=== PATIENT | female | born 1965 | race Caucasian/White ===

== ENCOUNTER 2020-03-24 08:12 | Outpatient (CLI) | payer OTHER, SELFPAY ==
--- NOTE | ~2020-03-24 | US_ITS ---
EXAMINATION: US abdomen complete DATE: 03/24/2020 09:20 INDICATION: Right upper quadrant abdominal pain. TECHNIQUE: Multiple grayscale and Doppler ultrasound images of the abdomen were obtained. COMPARISON: CT abdomen and pelvis 02/05/2018 FINDINGS: The visualized portions of the head, body, and tail of the pancreas are normal. There is di ffuse hepatic steatosis. There is normal flow in main portal vein. The gallbladder is normal in size. No gallstones or gallbladder wall thickening. There was a positive sonographic Krueger sign. The comm on duct is normal and measures 5 mm. The kidneys are normal in size. The spleen is normal in size. Ab dominal aorta is normal in caliber. Inferior vena cava is normal. IMPRESSION: 1. Diffuse hepatic steatosis. 2. Positive sonographic Krueger sign, but no other evidence of acute cholecystitis. Reviewed, dictated and finalized at location A. IMPRESSION: 1. Diffuse hepatic steatosis. 2. Positive sonographic Krueger sign, but no other evidence of acute cholecystit is.
== END 2020-03-24 08:13 | disposition home or self-care (01) ==
PROVIDERS: PCP Internal Medicine; Visit Provider Internal Medicine
DX: R10.11 Right upper quadrant pain (principal); K76.0 Fatty (change of) liver, not elsewhere classified
CPT/HCPCS: 76700

== ENCOUNTER 2020-03-29 01:24 | Outpatient (CLI) | payer OTHER, SELFPAY ==
[2020-03-30 18:47] LABS: SARS-CoV-2 RNA PCR Negative
== END 2020-03-29 01:25 | disposition home or self-care (01) ==
LOC: ANHCOVIDDT 01:25
PROVIDERS: PCP Internal Medicine; Visit Provider Surgery
DX: Z01.812 Encounter for preprocedural laboratory examination (principal); Z11.59 Encounter for screening for other viral diseases
CPT/HCPCS: 87635; C9803; U0003

== ENCOUNTER 2020-03-29 07:24 | Outpatient (CLI) | payer OTHER, SELFPAY ==
[2020-03-29 07:55] LABS: Anion Gap 12.4 mmol/L (7-16); Blood Urea Nitrogen 10 mg/dL (7-17); Calcium 8.7 mg/dL (8.4-10.2); Carbon Dioxide 25 mmol/L (22-30); Chloride 104 mmol/L (98-107); Estimated Glomerular Filt Rate > 60; Glucose 236 mg/dL (65-105); Potassium 4.4 mmol/L (3.4-5.0); Sodium 137 mmol/L (137-145)
--- NOTE | 2020-03-29 08:18 | ECG_ITS ---
Measurements Intervals [place] Rate: 73 P: 53 NC: 168 QRS: 15 QRSD: 88 T: 35 QT: 401 QTc: 445 Interpretive Statements SINUS RHYTHM LOW QRS VOLTAGE IN PRECORDIAL LEADS NONSPECIFIC T-WAVE ABNORMALITY- ANTERIOR LEADS BORDERLINE ECG Electronically Signed On 03-29-2020 8:24:57 CDT by Sonny Zhou D.O.
== END 2020-03-29 07:25 | disposition home or self-care (01) ==
PROVIDERS: PCP Internal Medicine; Referring Provider Anesthesiology; Visit Provider Surgery
DX: K42.9 Umbilical hernia without obstruction or gangrene (principal); E11.65 Type 2 diabetes mellitus with hyperglycemia; I10 Essential (primary) hypertension; Z01.812 Encounter for preprocedural laboratory examination; R94.31 Abnormal electrocardiogram [ECG] [EKG]
CPT/HCPCS: 36415; 80048; 86850; 86900; 86901; 93005

== ENCOUNTER 2020-04-01 01:13 | Day surgery (SDC) | payer OTHER, SELFPAY ==
[2020-03-27 15:18] VITALS: BMI 49.9
[2020-04-01] VITALS (9 sets, daily range): BP systolic 99–133; BP diastolic 40–92; PULSE 62–76; RESP 12–16; TEMP 36.3; O2SAT 93–100
--- NOTE | 2020-04-01 08:12 | WPDANESEPPF ---
Anes - Initial Pre Proc Eval Procedure: Operation Date: 04/01/20 12:30 Proposed Procedures p Robotic Assisted Umbilical Hernia Repair With Mesh - Caity Perez MD Date/Time: 04/01/20 08:12 Surgeon: Caity Perez MD Pre Op Diagnosis: Umbilical Hernia Patient Data Age: 55 Gender: F Height: 1.65 m Weight: 136.08 kg Allergies Allergy/AdvReac Type Severity Reaction Status Date / Time No Known Allergies Allergy Mild Verified 03/27/20 15:19 Home Medications Medication Instructions Recorded Confirmed Type fluticasone propionate 50 2 spray NASAL DAILY PRN #15.8 ml 07/11/19 04/01/20 Rx mcg/actuation nasal spray,suspension aspirin 81 mg tablet,delayed 81 mg PO DAILY 07/24/19 04/01/20 History release loratadine 10 mg tablet 10 mg PO DAILY 07/24/19 04/01/20 History levothyroxine 50 mcg tablet 50 mcg PO DAILY #90 tablet 11/09/19 04/01/20 Rx citalopram 20 mg tablet 20 mg PO DAILY #90 tablet 11/13/19 04/01/20 Rx lisinopril 20 mg tablet 20 mg PO DAILY #90 tablet 02/11/20 04/01/20 Rx simvastatin 20 mg tablet 20 mg PO DAILY #90 tablet 02/11/20 04/01/20 Rx glimepiride 4 mg tablet 4 mg PO BID 90 Days #180 tablet 02/27/20 04/01/20 Rx metformin 500 mg tablet 1,000 mg PO BID 90 Days #360 tablet 02/27/20 04/01/20 Rx albuterol sulfate [ProAir HFA] 2 inhalation INHALATION Q4-6H PRN 03/27/20 03/27/20 History Patient hx anesthesia problems: none Family hx anesthesia problems: none PMFSH Past Medical History Medical History (Updated 03/27/20 @ 10:11 by Malini Peace) Essential hypertension Hypothyroidism, unspecified Kidney stones Type 2 diabetes mellitus with hyperglycemia Social History Social History Smoking packs per day: 1 Smoking cigarettes per day: 20.0 Years smoked: 10 Smoking pack-years: 10.00 Smoking status: Former smoker Second hand tobacco smoke exposure: No Smoking end date: 09/06/99 Additional smoking assessment comments: QUIT 20 YEARS AGO Alcohol intake: current Substance use: never 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 Spiritual care concerns: No Anes - Eval Final PreProcedure Day of Procedure 04/01/20 08:12 Patient weight: morbidly obese Heart: regular rate and rhythm Lungs: clear to auscultation and normal air movement Airway: Mallampati scale class II and other (permanent bridge on top teeth) Neurological: alert and oriented Last oral intake: >/= 8 hours ASA classification: III Emergent: no Anesthetic plan: proceed Anesthesia type and monitoring: general ETT and standard monitoring Informed Consent: The patient's anesthetic plan and its attendant risks and benefits were discussed with the patient/family/POA. Questions were solicited and answers provided to the satisfaction of the patient/family/POA.
[2020-04-01] MEDS: LACTATED RINGERS 1,000 ML 30 ML IV CONT ×2 (11:02→16:55)
[2020-04-01] MEDS: ACETAMINOPHEN 500 MG TABLET 1000 MG PO (11:03)
[2020-04-01] MEDS: KETOROLAC 15 MG/ML VIAL (*BKC) IV PUSH (11:03)
--- NOTE | 2020-04-01 11:03 | WPDHPUPDATE1 ---
History and Physical Update Update Date/Time: 04/01/20 11:03 History and Physical has been reviewed, including an updated exam of the patient. There are NO changes in the patient's condition. Risks, benefits, and alternatives have been discussed and questions answered. Patient agrees to proceed with procedure.
[2020-04-01 11:07] LABS: Glucose Point of Care 196 (65-105)
--- NOTE | 2020-04-01 13:27 | SUR.PREOP ---
Up to bathroom.
[2020-04-01] MEDS: ceFAZolin 3 GM/D5W 100 ML 100 ML IVPB (14:24)
[2020-04-01] MEDS: BUPIVACAINE/EPINEPHRINE 0.5% 10 ML VIAL 30 ML INFILTRATE (14:56)
--- NOTE | 2020-04-01 16:42 | P.OP_ITS ---
Procedure Note - Detailed Date of procedure: 04/01/20 Pre-op diagnosis: Umbilical Hernia periumbilical ventral hernia, diastasis Post-op diagnosis: same Procedure performed: robotic assisted repair of periumbilical ventral hernia and diastasis recti with 15 x 10 cm mesh in underlay position Description of procedure: The patient was taken the operating room placed in the supine position. After adequate induction of general anesthesia, the patient was prepped and draped in normal sterile fashion. A time-out was then done to verify the patient's identity as well as the procedure being performed. I began by making a 5 mm incision in the left upper quadrant. Through this, a Veress needle was placed into the peritoneal cavity and CO2 gas was insufflated. After adequate pneumoperitoneum was achieved, a 5 mm trocar was placed through this incision. I then placed the laparoscope through this trocar site and under direct visualization I placed a 8 mm port in the left mid abdomen as well as an additional 8 mm port in the left lower abdomen. I then moved the camera to the lower port and replaced the 5 mm port with a 12 mm airport. The robot was then docked to the 3 port sites. I then went to the robotic console. I began by identifying the periumbilical hernia. A moderate-sized hernia was noted in the periumbilical region and a area of diastasis was noted inferiorly. Using graspers, I was able to reduce the hernia. The hernia was noted to just contain preperitoneal fat. Once reduced, I closed the defect and diastasis with 0 strata fix suture. I then placed a 15 x 10 cm symbotex mesh into the abdominal cavity. The Vicryl stitch was placed in the middle of the mesh and brought up centering the mesh over the defect. Once this was done, I used 2 0 V lock suture to circumferentially suture the mesh to the abdominal. Once the mesh was completely sutured in, I was happy with our tension-free repair. The mesh was noted to have good overlap of both the defect and area of diastasis. A t this point, the robot was undocked and all ports were removed. I then closed the 12 mm port site with an 0 Vicryl [id number] suture at the fascial level. All port sites were then closed with 4 O Monocryl subcuticular suture. The patient tolerated the procedure well, is extubated in the operating room postoperative, OB transferred to the recovery room in stable condition. Implants: 15 x 10 symbotex mesh Anesthesia: GETA Surgeon: Caity Perez MD Estimated blood loss (mL): 10 Drains: No Packing: No Pathology: none sent Complications: No immediate complications Condition: stable Disposition: PACU Findings: fat containing periumbilical hernia and diastasis
== END 2020-04-01 19:20 | disposition home or self-care (01) ==
PROVIDERS: PCP Internal Medicine; Visit Provider Surgery
PROC: (CPT 49652; principal; 2020-04-01 12:30)
DX: K43.9 Ventral hernia without obstruction or gangrene (principal); M62.08 Separation of muscle (nontraumatic), other site; I10 Essential (primary) hypertension; E11.9 Type 2 diabetes mellitus without complications; E03.9 Hypothyroidism, unspecified; Z79.84 Long term (current) use of oral hypoglycemic drugs; Z79.82 Long term (current) use of aspirin; Z87.891 Personal history of nicotine dependence; E66.01 Morbid (severe) obesity due to excess calories; Z68.43 Body mass index [BMI] 50.0-59.9, adult
CPT/HCPCS: 49652; S2900; 87635; A9270; C1781; C9803; J0330; J0690; J1100; J1170; J1885; J2250; J2405; J2704; J2710; J3010; J7120; U0003

== ENCOUNTER 2020-04-22 06:48 | Outpatient (CLI) | payer OTHER, SELFPAY ==
--- NOTE | ~2020-04-22 | NM_ITS ---
EXAMINATION: NM hepatobiliary w pharm EXAM DATE: 04/22/2020 08:42 INDICATION: Right upper quadrant pain. TECHNIQUE: 4.8 mCi Tc-99m mebrofenin (Choletec) was administered intravenously. Scintigraphic images of the abdomen were obtained for one hour. At the 1 hour time point, 3 mcg sincalide (Kinevac) was a dministered by slow intravenous infusion, and imaging was continued for 30 minutes. Gallbladder eject ion fraction was calculated by the technologist. There is no prior study for comparison. FINDINGS: There is normal clearance of radiotracer from the blood pool. There is homogeneous tracer u ptake by the liver. Activity progresses to the gallbladder and bowel. The gallbladder ejection fract ion (GBEF) is 79 % (most patients with gallbladder dysfunction have GBEF < 35%, but there is overlap with the normal range of 10-90%). IMPRESSION: Gallbladder ejection fraction 79%, within normal range. Reviewed, dictated and finalized at location B.
== END 2020-04-22 06:49 | disposition home or self-care (01) ==
PROVIDERS: PCP Internal Medicine; Visit Provider Internal Medicine
DX: R10.11 Right upper quadrant pain (principal)
CPT/HCPCS: 78227; A9537; J2805

== ENCOUNTER 2020-05-13 13:22 | Emergency (ER) | payer OTHER, SELFPAY ==
[2020-05-13 13:28] VITALS: BP 155/70; PULSE 89; RESP 16; TEMP 37.4; O2SAT 99
--- NOTE | 2020-05-13 13:59 | ED.WOUNDLAC ---
HPI - Wound/Laceration General Chief Complaint: Wound/Laceration Stated Complaint: lt hand index finger laceration Source: patient and RN notes reviewed Limitations: no limitations History of Present Illness HPI narrative: The patient, who is right-handed and immunizations not UTD, presents with wound check of avulsion/small laceration. Patient states wants know if she needs stitches or tetanus, as prior to arrival she cut her nondominant, left distal index finger while using a kitchen knife. This is resulting in a deep avulsion or small, superficial, well approximated distal based flap laceration, along the radial aspect of the finger. Symptoms are mild, better with rest or elevation and compression; she requests a tetanus shot and declines sutures. Related Data Home Medications Medication Instructions Recorded Confirmed aspirin 81 mg tablet,delayed 81 mg PO DAILY 07/24/19 05/13/20 release loratadine 10 mg tablet 10 mg PO DAILY 07/24/19 05/13/20 Allergies Allergy/AdvReac Type Severity Reaction Status Date / Time No Known Allergies Allergy Mild Verified 05/13/20 13:58 Review of Systems ENT: Comments: General/Constitutional: No weight loss,fever Eyes: N0: Redness,discharge Ears/Nose/Throat: No: Epistaxis,ear discharge Respiratory: Denies: Hemoptysis Gastrointestinal: No Vomiting, Bleeding-rectal Skin: No Lumps, eruption Neurologic: No Focal Weakness,Sz Hematologic: Denies: Petechiae/Purpura Psychiatric: No: Suicida ideationl All Other Systems: Reviewed and Negative [facility] Past Medical History Medical History (Updated 05/14/20 @ 00:00 by Jerel rBo) Essential hypertension Hypothyroidism, unspecified Kidney stones Type 2 diabetes mellitus with hyperglycemia Surgical History Surgical History (Updated 04/16/20 @ 14:21 by Kenia Arora) History of ventral hernia repair robotic assisted repair of periumbilical ventral hernia and diastasis recti with [id number] mesh in underlay position 04/01/20 Social History Social History Smoking packs per day: 1 Smoking cigarettes per day: 20.0 Years smoked: 10 Smoking pack-years: 10.00 Smoking status: Former smoker Second hand tobacco smoke exposure: No Smoking end date: 09/06/99 Additional smoking assessment comments: QUIT 20 YEARS AGO Alcohol intake: current Substance use: never 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 There is no relevant family history pertinent to the presenting complaint Exam Narrative: Exam Narrative: General Appearance: Well appearing, Conjunctiva clear Mouth/Throat: Normal appearing, Normal lips Neck: Supple Respiratory: Airway patent, No respiratory distress Skin: Warm, Dry, Normal color, 1.5 cm superficial avulsion/distal based superficial flap laceration, radial-lateral aspect finger MS finger: Normal strength (mostly intact, limited flexion/extension by pain), Tenderness at avulsion, Other (no anterior drawer, no collateral laxity,) Neurological: A&O x3, Normal affect Course Vital Signs Vital signs: Vital Signs Temperature 99.3 F 05/13/20 13:28 Pulse Rate 89 05/13/20 13:28 Respiratory Rate 16 05/13/20 13:28 Blood Pressure 155/70 H 05/13/20 13:28 Pulse Oximetry 99 05/13/20 13:28 Temperature 99.3 F 05/13/20 13:28 Pulse Rate 89 05/13/20 13:28 Respiratory Rate 16 05/13/20 13:28 Blood Pressure 155/70 H 05/13/20 13:28 Pulse Oximetry 99 05/13/20 13:28 Procedures Laceration Laceration 1: Date: 05/13/20 Site: upper extremity Side (If applicable): left Size (cm): 1.5 Description: linear Depth: simple, single layer Local Anesthetic: other anesthetic (topical) Pre-repair: wound explored
[2020-05-13] MEDS: TETANUS,DIPHTHERIA,AC PERTUSSIS ADULT (0.5 ML) BOOSTRIX IM (14:06)
== END 2020-05-13 14:35 | disposition home or self-care (01) ==
PROVIDERS: Emergency Provider Emergency Medicine; PCP Internal Medicine
DX: S61.211A Laceration without foreign body of left index finger without damage to nail, initial encounter (principal); W26.0XXA Contact with knife, initial encounter; Z23 Encounter for immunization; Z87.891 Personal history of nicotine dependence; I10 Essential (primary) hypertension; E03.9 Hypothyroidism, unspecified; E11.9 Type 2 diabetes mellitus without complications
CPT/HCPCS: 12001; 90471; 90715; 99212; G0463

== ENCOUNTER 2020-06-30 08:25 | Inpatient (IN) | payer OTHER, SELFPAY ==
[2020-06-30] VITALS (24 sets, daily range): BP systolic 103–152; BP diastolic 44–88; PULSE 76–117; RESP 16–28; TEMP 36–39.6; O2SAT 92–100; BMI 53.4
--- NOTE | ~2020-06-30 | XR_ITS ---
EXAMINATION: XR retrograde pyelo w/stent RT EXAM DATE: 06/30/2020 12:48 INDICATION: Cystoscopy, retrograde stent placement on the right. TECHNIQUE: Fluoroscopy used during XR retrograde pyelo w/stent RT performed by Dr. Irene Quinn MD. The DAP for this procedure was 1900 radcm2. Cine run(s) available for review. FINDINGS: Right ureter was cannulated, injected. There is mild right-sided hydronephrosis. A double- J ureteral stent was placed. Correlate with procedure note. IMPRESSION: Fluoroscopy used during XR retrograde pyelo w/stent RT. Reviewed, dictated and finalized at location A.
--- NOTE | ~2020-06-30 | XR_ITS ---
EXAMINATION: XR abdomen/kub 1V DATE: 07/01/2020 08:45 INDICATION: Right kidney stone. TECHNIQUE: A supine view of the abdomen on 2 radiographs was obtained. COMPARISON: Abdomen radiographs 07/20/2019, CT abdomen and pelvis 06/30/2020 FINDINGS: There are no dilated loops of bowel. There is a right internal ureteral stent in expected p osition. There is a 15 x 3 mm stone in right kidney lower pole. IMPRESSION: 1. Stone in right kidney lower pole. 2. Right internal ureteral stent in expected position. Reviewed, dictated and finalized at location A.
--- NOTE | ~2020-06-30 | CT_ITS ---
EXAMINATION: CT abdomen pelvis wo con DATE: 06/30/2020 09:09 INDICATION: Flank pain TECHNIQUE: Computed tomography (CT) of the abdomen and pelvis was performed without intravenous contr ast. Automated exposure control and iterative reconstruction technique were employed. The dose-length product was 1573.96 mGy-cm. COMPARISON: 02/05/2018 FINDINGS: Trace right pleural effusion and minimal dependent atelectasis in the right lung. Small pneumatocele in the right lower lobe. Heart size is normal. No pericardial effusion. Small sliding-type hiatal her valery. Diffuse hepatic steatosis. Gallbladder, pancreas and bilateral adrenal glands are normal. Spleni c calcified calcification consistent with old granulomatous disease. Obstructing 14 x 4 x 4 mm stone in the proximal most right ureter with mild right hydronephrosis. Additional 4 mm stone in an inferio r calyx of the right kidney. Left kidney and ureter are normal with no left-sided urolithiasis or hyd ronephrosis. Decompressed bladder is normal. The uterus is either atrophic or more likely surgically absent. 1.4 cm cyst at the right adnexa. Normal short appendix versus appendiceal stump post prior ap pendectomy. No abnormal bowel wall thickening or obstruction. There are few diverticula at the sigmoi d colon without adjacent inflammatory change to suggest diverticulitis. Mild scarring at the umbilicu s with tiny fat-containing supraumbilical hernia. Trace amount of either reactive or physiologic free fluid in the pelvis. No abscess or free intraperitoneal gas. No pathologically enlarged abdominal or pelvic lymphadenopathy. Chronic mild anterior wedging of a few mid to lower thoracic vertebral gabino s. Mild lumbar dextrocurvature with moderate spondylosis. IMPRESSION: 1. Right nephrolithiasis with obstructing 14 x 4 x 4 mm proximal right ureteral stone with mild right hydronephrosis. 2. Small sliding-type hiatal hernia. 3. Diffuse hepatic steatosis. 4. Mild diverticulosis. Reviewed, dictated and finalized at location A.
[2020-06-30 08:53] LABS: Basophils Absolute Auto 0.1 K/mm3 (0.0-0.1); Basophils Percent Auto 0.3 % (0.2-1.2); Eosinophils Percent Auto 0.2 % (0-4.4); Hematocrit 35.7 % (37.0-47.0); Hemoglobin 11.8 g/dL (12.0-15.0); Immature Granulocyte Absolute 0.28 K/mm3 (0.00-0.031); Immature Granulocyte Percent A 1.8 % (0-0.5); Lymphocytes Absolute Auto 0.73 K/mm3 (0.9-3.2); Lymphocytes Percent Auto 4.7 % (18.3-44.2); Mean Corpuscular HGB Conc 33.1 g/dl (32-36); Mean Corpuscular Hemoglobin 27.4 pg (26-34); Monocytes Absolute Auto 0.9 K/mm3 (0.1-0.6); Monocytes Percent Auto 5.5 % (2.6-8.5); Neutrophils Absolute Auto 13.6 K/mm3 (1.3-6.7); Neutrophils Percent Auto 87.5 % (45.5-73.1); Platelet Count Result 225 k/mm3 (150-375); Red Cell Distribution Width 13.7 % (11.5-14.5); White Blood Count 15.6 K/mm3 (4.5-10.0)
--- NOTE | 2020-06-30 09:01 | ED.ABDPAIN ---
HPI - Abdominal Pain General Chief Complaint: Back Pain/Injury Stated Complaint: Flank pain/fever/vomiting Time Seen by Provider: 06/30/20 08:54 Source: patient Mode of arrival: ambulatory Limitations: no limitations History of Present Illness HPI narrative: Patient is a 55-year-old female complaining of right flank pain accompanied by nausea vomiting and fever that started 3 days ago but worse today. Patient states her pain is an 8 out of 10, sharp, nonradiating. Patient denies any chest pain, shortness of breath or abdominal pain. Patient denies any urinary symptoms. Patient does admit to history of kidney stones. Related Data Home Medications Medication Instructions Recorded Confirmed aspirin 81 mg tablet,delayed 81 mg PO DAILY 07/24/19 05/13/20 release loratadine 10 mg tablet 10 mg PO DAILY 07/24/19 05/13/20 Allergies Allergy/AdvReac Type Severity Reaction Status Date / Time No Known Allergies Allergy Mild Verified 06/30/20 08:34 Review of Systems Review of Systems: All systems reviewed & are unremarkable except as noted in HPI and below Constitutional: Constitutional: Denies body ache(s), Denies chills, Denies excessive sweating, Denies fatigue, Denies fever(s), Denies headache(s), Denies lethargy, Denies malaise, Denies weakness and Denies weight loss Eyes: Eyes: Denies blurry vision, Denies change in vision and Denies loss of vision ENT: Denies dizziness, Denies ear discharge, Denies headache(s), Denies lip swelling, Denies epistaxis, Denies nasal congestion, Denies neck pain, Denies throat swelling and Denies tongue swelling Cardiovascular: Cardiovascular: Denies chest pain, Denies chest pain at rest, Denies chest pain with activity, Denies diaphoresis, Denies rapid heart rate, Denies edema, Denies irregular heart rhythm, Denies lightheadedness, Denies palpitations, Denies dyspnea and Denies dyspnea on exertion Respiratory: Respiratory: Denies chest congestion, Denies cough, Denies hemoptysis, Denies dyspnea and Denies dyspnea on exertion Gastrointestinal: Gastrointestinal: Denies abdominal pain, Denies melena, Denies hematochezia, Denies diarrhea, Denies nausea, Denies vomiting and Denies hematemesis Musculoskeletal: Musculoskeletal: Denies abnormal gait, Denies deformity, Denies joint swelling, Denies limited range of motion, Denies neck pain and Denies numbness Neurologic: Denies Abnormal speech present, Denies abnormal gait, Denies confusion, Denies dizziness, Denies headache(s), Denies focal weakness, Denies loss of vision, Denies numbness, Denies Other visual disturbances, Denies Sensory deficit (Neuro) and Denies weakness Psychiatric: Psychiatric: Denies confusion, Denies depression, Denies auditory hallucinations, Denies homicidal ideation and Denies suicidal ideation Endocrine: Endocrine: Denies cold intolerance, Denies excessive sweating, Denies fatigue, Denies heat intolerance and Denies palpitations Hematologic/Lymphatic: Hematologic/Lymphatic: Denies easy bleeding and Denies easy bruising Allergic/Immunologic: Allergic/Immunologic: Denies lip swelling, Denies throat swelling and Denies tongue swelling PMFSH Past Medical History Medical History (Updated 06/30/20 @ 11:39 by Abhinav Howe MD) Essential hypertension Hypothyroidism, unspecified Kidney stones Type 2 diabetes mellitus with hyperglycemia Surgical History Surgical History (Updated 04/16/20 @ 14:21 by Kenia Arora) History of ventral hernia repair robotic assisted repair of periumbilical ventral hernia and diastasis recti with [id number] mesh in underlay position 04/01/20 Family History Family History Sibling Patient's brother is in good health Family history of diabetes mellitus in first degree relative Mother Family history of diabetes mellitus in first degree relative, Onset Age: 76 Diabetes mellitus Father Patient's father is Other Ast
[2020-06-30 09:03] LABS: Anion Gap 12 mmol/L (8-16); Blood Urea Nitrogen 11 mg/dL (7-17); Carbon Dioxide 27 mmol/L (22-30); Chloride 94 mmol/L (98-107); Estimated Glomerular Filt Rate 42; Glucose 281 mg/dL (65-105); Sodium 133 mmol/L (137-145)
[2020-06-30 09:13] LABS: Add Urine Microscopic? YES; Appearance Urine Cloudy (Clear); Bacteria Urine Trace /hpf; Bilirubin Urine Negative (Negative); Blood Urine 2+ (Negative); Color Urine Yellow (Yellow); Glucose Urine UA 1+ mg/dL (Negative); Ketones Urine Trace mg/dL (Negative); Leukocyte Esterase Ur 3+ LEU/UL (Negative); Mucus Urine Rare /lpf; Nitrate Urine Negative (Negative); Protein Urine 3+ mg/dL (Negative); Squamous Epithelial Cell Urine Many /hpf (Few); Urobilinogen Urine Negative mg/dL (<2.0); WBC Urine >75 /hpf
[2020-06-30] MEDS: KETOROLAC 30 MG/ML VIAL (*BKC) IV PUSH (09:30)
[2020-06-30] MEDS: PROMETHAZINE HCL 25 MG/ML AMPUL 12.5 MG IV PUSH (09:32)
[2020-06-30] MEDS: SODIUM CHLORIDE 0.9% IV 1,000 ML 999 ML IV CONT (09:32)
--- NOTE | 2020-06-30 12:06 | WPDANESEPPF ---
Anes - Initial Pre Proc Eval Procedure: Operation Date: 06/30/20 12:00 Proposed Procedures p Cysto, RPG, Stone Ext, Stent Placement(Right) - Irene Quinn MD Date/Time: 06/30/20 12:06 Surgeon: Irene Quinn MD Pre Op Diagnosis: Flank pain/fever/vomiting Patient Data Age: 55 Gender: F Height: Weight: 145.5 kg Last Vital Signs Temp 37.4 C 06/30/20 08:30 Pulse 99 06/30/20 11:58 Resp 20 06/30/20 11:58 BP 110/60 06/30/20 11:58 Pulse Ox 99 06/30/20 11:58 Allergies Allergy/AdvReac Type Severity Reaction Status Date / Time No Known Allergies Allergy Mild Verified 06/30/20 08:34 Home Medications Medication Instructions Recorded Confirmed Type aspirin 81 mg tablet,delayed 81 mg PO DAILY 07/24/19 05/13/20 History release loratadine 10 mg tablet 10 mg PO DAILY 07/24/19 05/13/20 History lisinopril 20 mg tablet 20 mg PO DAILY #90 tablet 02/11/20 05/13/20 Rx simvastatin 20 mg tablet 20 mg PO DAILY #90 tablet 02/11/20 05/13/20 Rx metformin 500 mg tablet 1,000 mg PO BID 90 Days #360 tablet 02/27/20 05/13/20 Rx citalopram 20 mg tablet 20 mg PO DAILY #90 tablet 05/16/20 Rx glimepiride 4 mg tablet 4 mg PO BID 90 Days #180 tablet 05/16/20 Rx levothyroxine 50 mcg tablet 50 mcg PO DAILY #90 tablet 05/19/20 Rx Laboratory Tests 06/30/20 06/30/20 06/30/20 08:37 08:37 08:40 WBC 15.6 K/mm3 H K/mm3 (4.5-10.0) RBC 4.30 M/mm3 M/mm3 (4.2-5.4) Hgb 11.8 g/dL L g/dL (12.0-15.0) Hct 35.7 % L % (37.0-47.0) MCV 83.0 fl fl (80-100) MCH 27.4 pg pg (26-34) MCHC 33.1 g/dl g/dl (32-36) RDW 13.7 % % (11.5-14.5) Plt Count 225 k/mm3 k/mm3 (150-375) MPV 9.0 fl fl (7.4-10.4) Immature Gran % (Auto) 1.8 % H % (0-0.5) Neut % (Auto) 87.5 % H % (45.5-73.1) Lymph % (Auto) 4.7 % L % (18.3-44.2) [place] % (Auto) 5.5 % % (2.6-8.5) Eos % (Auto) 0.2 % % (0-4.4) Baso % (Auto) 0.3 % % (0.2-1.2) Lymph # (Auto) 0.73 K/mm3 L K/mm3 (0.9-3.2) [place] # (Auto) 0.9 K/mm3 H K/mm3 (0.1-0.6) Eos # (Auto) 0.0 K/mm3 K/mm3 (0-0.3) Baso # (Auto) 0.1 K/mm3 K/mm3 (0.0-0.1) Abs Immat Gran (auto) 0.28 K/mm3 H K/mm3 (0.00-0.031) Absolute Neuts (auto) 13.6 K/mm3 H K/mm3 (1.3-6.7) Absolute Nucleated RBC 0.0 K/mm3 K/mm3 (0.0-0.012) Nucleated RBC % 0.0 % % (0.0-0.2) Sodium 133 mmol/L L mmol/L (137-145) Potassium 4.0 mmol/L mmol/L (3.4-5.0) Chloride 94 mmol/L L mmol/L (98-107) Carbon Dioxide 27 mmol/L mmol/L (22-30) Anion Gap 12 mmol/L mmol/L (8-16) BUN 11 mg/dL mg/dL (7-17) Creatinine 1.30 mg/dL H mg/dL (0.7-1.0) Estim Creat Clear Calc Not Reportable Estimated GFR 42 L (59 - ) Glucose 281 mg/dL H mg/dL (65-105) Calcium 9.0 mg/dL mg/dL (8.4-10.2) Urine Color Yellow (Yellow) Urine Appearance Cloudy H (Clear) Urine pH 5.0 (5.0-9.0) Ur Specific [place] 1.020 (1.001-1.035) Urine Protein 3+ mg/dL H mg/dL (Negative) Urine Glucose (UA) 1+ mg/dL H mg/dL (Negative) Urine Ketones Trace mg/dL mg/dL (Negative) Ur Blood (Man) 2+ H (Negative) Urine Nitrate Negative (Negative) Urine Bilirubin Negative (Negative) Urine Urobilinogen Negative mg/dL mg/dL (<2.0) Leukocyte Esterase Rfl 3+ HALLIE/UL H HALLIE/UL (Negative) Urine RBC 6-10 /hpf H /hpf (0-2) Urine WBC >75 /hpf H /hpf Ur Squamous Epith Cells Many /hpf H /hpf (Few) Urine Bacteria Trace /hpf /hpf Urine Mucus Rare /lpf /lpf Patient hx anesthesia problems: none Family hx anesthesia problems: none PMF
--- NOTE | 2020-06-30 12:13 | WPDURCON ---
Assessment and Plan Assessment and plan (1) Acute unilateral obstructive uropathy: Code(s): N13.9 - Obstructive and reflux uropathy, unspecified Status: Acute (2) Hydronephrosis due to obstruction of ureter: Code(s): N13.2 - Hydronephrosis with renal and ureteral calculous obstruction Status: Acute Assessment and Plan: right 14mm proximal ureteral stone with hydronephrosis of the right kidney, associated urinary tract infection - patient to be taken to the OR today for cystoscopy right ureteral stent insertion. Risks benefits alternatives discussed with the patient patient understands and agrees to proceed with procedure today. She understands risk procedure include but limited to infection, bleeding, pain, injury to surrounding structures, inability to place stent, need for additional interventions. She understands stent is a temporary device and she will need definitive stone surgery down the road - patient will be admitted to the hospital and be given IV antibiotics. We will wait final culture results (3) Urinary tract infection: Qualifiers: Hematuria presence: with hematuria Urinary tract infection type: site unspecified Qualified Code(s): N39.0 - Urinary tract infection, site not specified; R31.9 - Hematuria, unspecified Code(s): N39.0 - Urinary tract infection, site not specified Status: Acute Urology Consult Note HPI Date Seen: 06/30/20 Requesting Physician: Irene Quinn MD Primary Care Provider: Vamshi Felix DO Consult Narrative Narrative: Thea Quiroz is a 55 year old female with right flank pain accompanied by nausea vomiting and fever that started 3 days ago but worse today. Patient states her pain is an 8 out of 10, sharp, nonradiating. Patient denies any chest pain, shortness of breath or abdominal pain. Patient denies any urinary symptoms. - Patient does admit to history of kidney, States previously stones have passed on their own or have dissolved with potassium citrate PMFSH Past Medical History Medical History Essential hypertension Hypothyroidism, unspecified Kidney stones Type 2 diabetes mellitus with hyperglycemia Surgical History Surgical History History of ventral hernia repair robotic assisted repair of periumbilical ventral hernia and diastasis recti with [id number] mesh in underlay position 04/01/20 Family History Family History Sibling Patient's brother is in good health Family history of diabetes mellitus in first degree relative Mother Family history of diabetes mellitus in first degree relative, Onset Age: 76 Diabetes mellitus Father Patient's father is Other Asthma Cerebrovascular accident Family history of arthritis Family history of glaucoma Family history of thyroid disease Hypertension Malignant neoplasm of prostate Social History Social History Smoking packs per day: 1 Smoking cigarettes per day: 20.0 Years smoked: 10 Smoking pack-years: 10.00 Smoking status: Former smoker Second hand tobacco smoke exposure: No Smoking end date: 09/06/99 Additional smoking assessment comments: QUIT 20 YEARS AGO Alcohol intake: current Substance use: never 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
--- NOTE | 2020-06-30 12:44 | PM.PROC ---
Procedure Note - Detailed Date of procedure: 06/30/20 Pre-op diagnosis: Flank pain/fever/vomiting Post-op diagnosis: same Procedure performed: cystoscopy, right retrograde pyelogram, right ureteral stent insertion, Taylor catheter insertion Description of procedure: informed consent obtained patient to the operative procedure preoperative IV antibiotics in the emergency department. she was induced with anesthesia she was placed in dorsal lithotomy position. She was prepped and draped. A 22 F cystoscope was inserted through the urethra into the bladder. The bladder was irritated with debris consistent with her known UTI, there were no other mucosal abnormalities. the right ureteral orifice is cannulated retrograde pyelogram showed moderate right hydronephrosis. I was able to manipulate a wire past the stone. Over the wire I advanced a 5 F angiographic catheter, there was return of purulence fluid from the right kidney which was sent for culture. Again a retrograde pyelogram was performed to identify the right collecting system with moderate hydronephrosis. Over a wire a 6 F variable length stent was placed with a curl in the renal pelvis and a curl in the bladder. A Taylor catheter was inserted. Patient taken the recovery room in stable condition Anesthesia: GLMA Surgeon: Irene Quinn MD Estimated blood loss (mL): 0 Drains: No Packing: No Pathology: none sent Complications: No immediate complications Condition: stable Disposition: PACU
[2020-06-30] MEDS: LACTATED RINGERS 1,000 ML 30 ML IV CONT (12:53)
[2020-06-30 13:27] LABS: Glucose Point of Care 250 (65-105)
--- NOTE | 2020-06-30 13:35 | SUR.PHASEI ---
PT AWAKENS EASILY. RESTING QUIETLY. DENIES PAIN OR NAUSEA. COLD CLOTH APPLIED TO FOREHEAD PER REQUEST.
--- NOTE | 2020-06-30 13:56 | SUR.PHASEI ---
CALLED DR JUÁREZ, CLARIFICATION, PT TO GO TO MED/SURG. NOT IMU.
--- NOTE | 2020-06-30 14:06 | SUR.PHASEI ---
PT SLEEPING IN INTERVALS. REPORT WAS FAXED TO FLOOR AT [id number].
--- NOTE | 2020-06-30 14:20 | ADMGEN ---
This patient, Thea Quiroz, was admitted to 2 Medical Room 242-01. Patient/family oriented to hospital policies and general routines including ID bracelet, bed and alarms, visiting hours, pain management, procedures, bathroom and other care routines, personal items, smoking policy, room service/diet, and visiting hours. Information on how to activate the Rapid Response Team has been discussed. Patient/Family are encouraged to report perceived risks to care and to ask questions if they do not understand what they are told or what they should do.
[2020-06-30] MEDS: LACTATED RINGERS 1,000 ML 125 ML IV CONT ×2 (14:46→22:25)
--- NOTE | 2020-06-30 17:11 | PM.IMHP ---
H&P: HPI History of Present Illness Date/Time: 06/30/20 17:11 Chief complaint: Flank pain/fever/vomiting Narrative: Thea Quiroz is a 55 year old female Who has a history of having kidney stones in the past but has never had a renal stent. The patient stated that she started to have some right flank pain that started In the evening after work. She did not go to work on Wednesday. patient has been having some right flank pain with some nausea and vomiting and fever. She stated her fever got up to 103. Today her pain was severe 8/10 and it was sharp and nonradiating. This was in the right flank area. She only took Tylenol at home. She had no chest pain or palpitations. No cough. Patient's vital signs when she came to the emergency room 37.4 100 And 20 on 09/25/19. patient's H&H insulin 0.8 and 35.7. Creatinine 1.3 and is usually normal. Patient was positive for UTI and was started on Rocephin. abdomen pelvis CT was read as right verbalizes with obstructing 14 x 4 x 4 mm proximal right ureteral stone with mild hydronephrosis. Small sliding-type hiatal hernia. Diffuse hepatic steatosis. Mild diverticulosis. Urology took the patient to OR and placed a stent in the right ureter. According to the op report there was no blood loss and no complications. See the operative note. This procedure was performed by Dr. Quinn. patient had a cysto, RPG, stone extraction. Stent placement on the right. The patient was given Toradol, Phenergan, and IV fluids in the emergency room. Patient is awake now and answering questions. However she is feeling nauseated and some mild discomfort. She is having fever and chills. The patient is being admitted to observation to medical floor on 06/30/2020. Review of Systems Review of Systems: All systems reviewed & are unremarkable except as noted in HPI and below Constitutional: Constitutional: Reports as per HPI and Reports no additional constitutional complaints Eyes: Eyes: Reports as per HPI and Reports no additional eye complaints ENT: Reports system reviewed and no additional complaints, except as documented and Reports Normal hearing present Cardiovascular: Cardiovascular: Reports no additional cardiovascular complaints Respiratory: Respiratory: Reports no additional respiratory complaints and Reports no additional respiratory complaints Gastrointestinal: Gastrointestinal: Reports as per HPI and Reports no additional gastrointestinal complaints Musculoskeletal: Musculoskeletal: Reports no additional musculoskeletal complaints Integumentary/Breasts: Skin/Breast: Reports system reviewed and no additional complaints, except as docu and Reports as per HPI Neurologic: Reports system reviewed and no additional complaints, except as documented, Reports as per HPI and Reports Normal hearing present Psychiatric: Psychiatric: Reports no additional psychiatric complaints and Reports as per HPI Endocrine: Endocrine: Reports no additional endocrine complaints Hematologic/Lymphatic: Hematologic/Lymphatic: Reports no additional hematologic/lymphatic complaints Allergic/Immunologic: Allergic/Immunologic: Reports no additional allergic/immunologic complaints [facility] Past Medical History Medical History (Updated 06/30/20 @ 17:21 by Zena Rodriguez NP) Depression with anxiety Diverticulosis Essential hypertension Hypertension Hypothyroidism, unspecified Kidney stones Type 2 diabetes mellitus with hyperglycemia Surgical History Surgical History (Updated 06/30/20 @ 17:21 by Zena Rodriguez NP) History of renal stent 06/30/2020 History of ventral hernia repair robotic assisted repair of periumbilical ventral hernia and diastasis recti with [id number] mesh in underlay position 04/01/20 Family History Family History (Updated 06/30/20 @ 17:22 by Zena Rodriguez NP) Sibling Patient's brother is in good health Family history of diabetes mellitus in first degree relative sister Moth
[2020-06-30 17:19] LABS: Glucose Point of Care 231 (65-105)
[2020-06-30] MEDS: GLIMEPIRIDE 2 MG TABLET 4 MG PO (17:24)
[2020-06-30] MEDS: INSULIN ASPART (*BKC) 100 UNITS/ML SUB-Q (17:30)
[2020-06-30 22:29] LABS: Glucose Point of Care 246 (65-105)
[2020-07-01] VITALS (16 sets, daily range): BP systolic 104–138; BP diastolic 58–78; PULSE 85–102; RESP 15–23; TEMP 36.4–39.3; O2SAT 92–99
[2020-07-01] MEDS: INSULIN ASPART (*BKC) 100 UNITS/ML SUB-Q ×4 (00:30→16:27)
[2020-07-01 00:32] LABS: Glucose Point of Care 262 (65-105)
[2020-07-01 05:53] LABS: Hematocrit 34.6 % (37.0-47.0); Hemoglobin 11.1 g/dL (12.0-15.0); Mean Corpuscular HGB Conc 32.1 g/dl (32-36); Mean Corpuscular Hemoglobin 27.1 pg (26-34); Mean Corpuscular Volume 84.6 fl (80-100); Mean Platelet Volume 9.4 fl (7.4-10.4); Platelet Count Result 175 k/mm3 (150-375); Red Blood Count 4.09 M/mm3 (4.2-5.4); Red Cell Distribution Width 14.1 % (11.5-14.5); White Blood Count 10.7 K/mm3 (4.5-10.0)
[2020-07-01 06:11] LABS: Lactic Acid Reflex 2.1 mmol/L (0.7-2.1)
[2020-07-01] MEDS: LEVOTHYROXINE SODIUM 50 MCG TABLET PO (06:21)
[2020-07-01 06:24] LABS: Hemoglobin A1C 9.2 % (<5.7)
[2020-07-01] MEDS: LACTATED RINGERS 1,000 ML 125 ML IV CONT ×2 (06:24→16:27)
[2020-07-01 06:33] LABS: Glucose Point of Care 205 (65-105)
[2020-07-01 06:59] LABS: Band Neutrophils Percent 8 % (0-6); Lymphocytes Absolute Manual 0.64 K/mm3 (1.1-4.5); Monocytes Absolute Manual 0.74 K/mm3 (0.1-0.90); Monocytes Percent Manual 7 % (3-9); Neutrophils Percent Manual 79 % (46-73); Platelet Estimate Adequate (Adequate); Total Cells Counted 100
[2020-07-01 07:09] LABS: Alanine Aminotransferase 23 U/L (4-35); Albumin Level 3.2 g/dL (3.5-5.1); Alkaline Phosphatase 112 U/L (38-126); Anion Gap 9 mmol/L (8-16); Aspartate Amino Transferase 31 U/L (14-36); Bilirubin,Total 0.6 mg/dL (0.2-1.3); Blood Urea Nitrogen 19 mg/dL (7-17); Calcium 8.2 mg/dL (8.4-10.2); Carbon Dioxide 29 mmol/L (22-30); Chloride 94 mmol/L (98-107); Estimated CRCL calculation 63 ml/min; Estimated Glomerular Filt Rate 42; Glucose 222 mg/dL (65-105); Magnesium 1.7 mg/dL (1.6-2.3); Potassium 3.9 mmol/L (3.4-5.0); Sodium 132 mmol/L (137-145)
--- NOTE | 2020-07-01 07:12 | WPDUROPN2 ---
Progress Note: A&P Assessment and Plan (1) Acute unilateral obstructive uropathy: Code(s): N13.9 - Obstructive and reflux uropathy, unspecified Status: Acute (2) Hydronephrosis due to obstruction of ureter: Code(s): N13.2 - Hydronephrosis with renal and ureteral calculous obstruction Status: Acute (3) Urinary tract infection: Qualifiers: Hematuria presence: with hematuria Urinary tract infection type: site unspecified Qualified Code(s): N39.0 - Urinary tract infection, site not specified; R31.9 - Hematuria, unspecified Code(s): N39.0 - Urinary tract infection, site not specified Status: Acute Assessment and Plan: Obstructive pyelonephritis resolving as expected - anticipate several more days of diminishing/intermittently spiking fevers (explained to pt.). Improved leukocytosis is encouraging. Continue Ceftriaxone peinding culture. Will get KUB to determine stone position after stent placement. Subjective Subjective Date/Time Seen: 07/01/20 07:12 Chilling persists, fever slowly resolving. No abdominal/flank pain, tolerating stent well. Review of Systems Cardiovascular: Cardiovascular: Denies chest pain, Denies lightheadedness, Denies palpitations and Denies dyspnea Respiratory: Respiratory: Denies dyspnea Gastrointestinal: Gastrointestinal: Denies diarrhea, Denies nausea and Denies vomiting Genitourinary: Genitourinary: Denies hematuria and Denies dysuria Endocrine: Endocrine: Denies palpitations Objective Data Vital Signs Vital Signs: Vital Signs - 24 hr 06/30/20 08:30 06/30/20 10:13 06/30/20 11:34 Temperature 99.3 F Pulse Rate 76 100 100 Respiratory Rate 20 20 20 Blood Pressure 152/63 H 121/50 L 118/88 Pulse Oximetry 96 95 97 06/30/20 11:55 06/30/20 11:58 06/30/20 12:53 Temperature 99.7 F H Pulse Rate 99 99 106 H Respiratory Rate 20 20 20 Blood Pressure 110/60 110/60 103/52 L Pulse Oximetry 99 99 100 06/30/20 13:05 06/30/20 13:20 06/30/20 13:35 Temperature Pulse Rate 103 H 102 H 101 H Respiratory Rate 26 H 26 H 26 H Blood Pressure 108/53 L 114/64 118/53 L Pulse Oximetry 100 100 94 06/30/20 13:50 06/30/20 14:05 06/30/20 14:20 Temperature 99.3 F Pulse Rate 101 H 98 100 Respiratory Rate 28 H 28 H 16 Blood Pressure 110/44 L 116/56 L 123/57 L Pulse Oximetry 93 93 94 06/30/20 14:35 06/30/20 15:05 06/30/20 16:05 Temperature 99.0 F 99.6 F 103.0 F H Pulse Rate 102 H 104 H 110 H Respiratory Rate 16 17 17 Blood Pressure 128/52 L 135/61 119/56 L Pulse Oximetry 93 92 93 06/30/20 17:00 06/30/20 17:25 06/30/20 17:55 Temperature 103.0 F H 103 F H 98.8 F Pulse Rate 110 H Respiratory Rate 17 Blood Pressure 119/56 L Pulse Oximetry 93 06/30/20 18:21 06/30/20 20:00 06/30/20 22:30 Temperature 98.8 F 96.8 F L 103.2 F H Pulse Rate 86 Respiratory Rate 20 Blood Pressure 110/53 L Pulse Oximetry 98 06/30/20 22:55 06/30/20 23:30 06/30/20 23:56 Temperature 103.2 F H 103.1 F H 103.1 F H Pulse Rate 117 H Respiratory Rate 24 H Blood Pressure 105/59 L Pulse Oximetry 95 07/01/20 00:00 07/01/20 00:41 07/01/20 01:29 Temperature 100.9 F H 100.5 F H 98.9 F Pulse Rate Respiratory Rate Blood Pressure Pulse Oximetry 07/01/20 04:00 Temperature 97.5 F L Pulse Rate 102 H Respiratory Rate 22 H Blood Pressure 104/67 Pulse Oximetry 92 Intake/Output Intake/Output: Intake & Output 06/28/20 06/29/20 06/30/20 07/01/20 23:59 23:59 23:59 23:59 Intake Total 2915 1400 Output Total 275 650 Balance 2640 750 Meds/Results Medications: Active Medications Generic Name Dose Route Start Last Admin Trade Name Freq PRN Reason Stop Dose Admin Citalopram Hydrobromide 20 mg 07/01/20 09:00 Citalopram Hydrobromide 20 Mg Tablet PO DAILY MARCIE Dextrose 12.5 gm 06/30/20 16:42 Dextrose 50% 25 Gm/50 Ml Syringe IV PUSH PRN PRN Hypoglycemia Rey
[2020-07-01 07:39] LABS: CRP 39.6 mg/dL (<1.0)
--- NOTE | 2020-07-01 08:29 | PC.NURSE ---
Patient to xray per wheelchair. IVF saline locked.
--- NOTE | 2020-07-01 08:49 | PC.NURSE ---
Patient return from Xray.
[2020-07-01 08:50] LABS: Reflex Lactic Acid Yes or No Add Lactic
[2020-07-01] MEDS: CITALOPRAM HYDROBROMIDE 20 MG TABLET PO (08:54)
[2020-07-01] MEDS: LORATADINE 10 MG TABLET PO (08:55)
[2020-07-01] MEDS: GLIMEPIRIDE 2 MG TABLET 4 MG PO (08:55)
[2020-07-01] MEDS: SIMVASTATIN 20 MG TABLET PO (08:55)
[2020-07-01 09:25] LABS: Lactic Acid 2.2 mmol/L (0.7-2.1)
--- NOTE | 2020-07-01 10:24 | WPDANESPN ---
Anes - Prog Note Post-Op Date/Time: 07/01/20 10:24 Cardiovascular status: normal Respiratory status: normal Airway patency: baseline Mental status: baseline Post-Op hydration status: normal Vital Signs: Last Vital Signs Temp 100.1 F H 07/01/20 07:00 Pulse 102 H 07/01/20 04:00 Resp 22 H 07/01/20 04:00 BP 104/67 07/01/20 04:00 Pulse Ox 92 07/01/20 04:00 Pain Score (VAS): 0 I/O: Intake & Output 06/30/20 07/01/20 07/01/20 23:59 07:59 15:59 Intake Total 1365 1500 340 Output Total 175 650 Balance 1190 850 340 Laboratory Tests 07/01/20 04:58 07/01/20 04:58 06/30/20 06/30/20 06/30/20 13:25 17:14 22:26 WBC RBC Hgb Hct MCV MCH MCHC RDW Plt Count MPV Immature Gran % (Auto) Neut % (Auto) Lymph % (Auto) [place] % (Auto) Eos % (Auto) Baso % (Auto) Lymph # (Auto) [place] # (Auto) Eos # (Auto) Baso # (Auto) Abs Immat Gran (auto) Absolute Neuts (auto) Absolute Nucleated RBC Total Counted Neutrophils % (Manual) Band Neutrophils % Lymphocytes % (Manual) Monocytes % (Manual) Nucleated RBC % Abs Neuts (Manual) Abs Lymphs (Manual) Abs Monocytes (Manual) Platelet Estimate Sodium Potassium Chloride Carbon Dioxide Anion Gap BUN Creatinine Estim Creat Clear Calc Estimated GFR Glucose POC Capillary Glucose 250 H 231 H 246 H Hemoglobin A1c Lactic Acid Calcium Magnesium Total Bilirubin AST ALT Alkaline Phosphatase C-Reactive Protein Total Protein Albumin TSH (Reflex) 06/30/20 07/01/20 07/01/20 23:39 04:58 04:58 WBC 10.7 H RBC 4.09 L Hgb 11.1 L Hct 34.6 L MCV 84.6 MCH 27.1 MCHC 32.1 RDW 14.1 Plt Count 175 MPV 9.4 Immature Gran % (Auto) Not Reportable Neut % (Auto) Not Reportable Lymph % (Auto) Not Reportable [place] % (Auto) Not Reportable Eos % (Auto) Not Reportable Baso % (Auto) Not Reportable Lymph # (Auto) Not Reportable [place] # (Auto) Not Reportable Eos # (Auto) Not Reportable Baso # (Auto) Not Reportable Abs Immat Gran (auto) Not Reportable Absolute Neuts (auto) Not Reportable Absolute Nucleated RBC Not Reportable Total Counted 100 Neutrophils % (Manual) 79 H Band Neutrophils % 8 H Lymphocytes % (Manual) 6.0 L Monocytes % (Manual) 7 Nucleated RBC % Not Reportable Abs Neuts (Manual) 9.30 H Abs Lymphs (Manual) 0.64 L Abs Monocytes (Manual) 0.74 Platelet Estimate Adequate Sodium 132 L Potassium 3.9 Chloride 94 L Carbon Dioxide 29 Anion Gap 9 BUN 19 H Creatinine 1.30 H Estim Creat Clear Calc 63 Estimated GFR 42 L Glucose 222 H POC Capillary Glucose 262 H Hemoglobin A1c Lactic Acid Calcium 8.2 L Magnesium 1.7 Total Bilirubin 0.6 AST 31 ALT 23 Alkaline Phosphatase 112 C-Reactive Protein 39.6 H Total Protein 6.0 L Albumin 3.2 L TSH (Reflex) 07/01/20 07/01/20 07/01/20 04:58 04:58 04:58 WBC RBC Hgb Hct MCV MCH MCHC RDW Plt Count MPV Immature Gran % (Auto) Neut % (Auto) Lymph % (Auto) [place] % (Auto) Eos % (Auto) Baso % (Auto) Lymph # (Auto) [place] # (Auto) Eos # (Auto) Baso # (Auto) Abs Immat Gran (auto) Absolute Neuts (auto) Absolute Nucleated RBC Total Counted Neutrophils % (Manual) Band Neutrophils % Lymphocytes % (Manual) Monocytes % (Manual) Nucleated RBC % Abs Neuts (Manual) Abs Lymphs (Manual) Abs Monocytes (Manual) Platelet Estimate Sodium Potassium Chloride Carbon Dioxide Anion Gap BUN Creatinine Estim Creat Clear Calc Estimated GFR Glucose POC Capillary Glucose Hemoglobin A1c 9.2 H Lactic Acid 2.1 Calcium Magnesium Total Bilirubin AST ALT
--- NOTE | 2020-07-01 11:28 | PM.IMPN ---
Progress Note: A&P Assessment and Plan (1) Sepsis: Code(s): A41.9 - Sepsis, unspecified organism Status: Acute Assessment and Plan: With leukocytosis, fever, tachycardia. The suspected source is obstructive pyelonephritis. Lactic acid was minimally elevated at 2.2 on reflex and will be repeated. She is hemodynamically stable without hypotension. Await repeat lactic acid. Blood and urine cultures were obtained and are pending. Continue IV fluids and IV antibiotics. Continue to monitor vitals, intake & output. (2) Acute unilateral obstructive uropathy: Code(s): N13.9 - Obstructive and reflux uropathy, unspecified Status: Acute Assessment and Plan: CT abd/pelvis demonstrated right 14mm proximal ureteral stone with hydronephrosis of the right kidney and associated UTI. She underwent cystoscopy with right retrograde pyelogram and right ureteral stent placement by Dr. Quinn 06/30. There was purulence returned during the cystoscopy which was sent for culture. She is on IV ceftriaxone. Taylor is still in place. Appreciate urology input. Management per urology. (3) Urinary tract infection: Qualifiers: Hematuria presence: with hematuria Urinary tract infection type: site unspecified Qualified Code(s): N39.0 - Urinary tract infection, site not specified; R31.9 - Hematuria, unspecified Code(s): N39.0 - Urinary tract infection, site not specified Status: Acute Assessment and Plan: Urinalysis was suspicious for UTI. She is febrile with Tmax 103.2F yesterday. Blood and urine cultures were ordered and are pending. Urology is on board and input is appreciated. Continue empiric ceftriaxone and adjust antibiotics as indicated according to sensitivities. Continue IV fluids. Continue antipyretics and antiemetics as needed. (4) Hydronephrosis due to obstruction of ureter: Code(s): N13.2 - Hydronephrosis with renal and ureteral calculous obstruction Status: Acute Assessment and Plan: As above. (5) Type 2 diabetes mellitus with hyperglycemia: Qualifiers: Diabetes mellitus senior living insulin use: without predatory animal exterminator use Qualified Code(s): E11.65 - Type 2 diabetes mellitus with hyperglycemia Code(s): E11.65 - Type 2 diabetes mellitus with hyperglycemia Status: Chronic Assessment and Plan: Hemoglobin A1c is elevated at 9.2%. She was recently referred to endocrinology and the appointment was scheduled for today. Plan to hold oral hypoglycemics while inpatient and add lantus 10 units HS as blood sugars are elevated above target. Continue ACHS glucose monitoring, sliding scale insulin, and hypoglycemia protocol. She will need to follow-up with endocrinology outpatient as well. (6) Acute renal failure: Code(s): N17.9 - Acute kidney failure, unspecified Status: Acute Assessment and Plan: Possibly secondary to acute infection, dehydration due to poor PO intake and vomiting, hydronephrosis due to obstructive stone. Cr is 1.3 and BUN 19 today. Her creatinine is 1.3 today. Baseline appears to be 0.5. Continue IV fluids. Renally dose medications and avoid nephrotoxins. (7) Hypothyroidism, unspecified: Qualifiers: Hypothyroidism type: unspecified Qualified Code(s): E03.9 - Hypothyroidism, unspecified Code(s): E03.9 - Hypothyroidism, unspecified Status: Chronic Assessment and Plan: TSH id 1.23 Continue levothyroxine. (8) Hypertension: Code(s): I10 - Essential (primary) hypertension Status: Chronic Assessment and Plan: Blood pressures have been on the soft side. Most recent blood pressure was 138/69. Lisinopril is held due to BLAIR. Resume when clinically appropriate. (9) Depression with anxiety: Code(s): F41.8 - Other specified anxiety disorders Status: Acute Assessment and Plan: Mood is stable. Continue citalopram.
[2020-07-01 11:32] LABS: Glucose Point of Care 272 (65-105)
[2020-07-01] MEDS: ONDANSETRON INJ 4 MG/2 ML VIAL IV PUSH ×2 (13:12→20:36)
[2020-07-01 14:18] LABS: Lactic Acid Reflex 1.6 mmol/L (0.7-2.1)
[2020-07-01 16:26] LABS: Glucose Point of Care 237 (65-105)
[2020-07-01] MEDS: INSULIN GLARGINE (*BKC) 100 UNITS/ML 10 UNITS SUB-Q (20:47)
[2020-07-01 21:11] LABS: Glucose Point of Care 186 (65-105)
[2020-07-01 22:36] LABS: Glucose Point of Care 185 (65-105)
[2020-07-02] VITALS (12 sets, daily range): BP systolic 113–130; BP diastolic 61–73; PULSE 57–102; RESP 16–22; TEMP 36.4–39.1; O2SAT 95–99
[2020-07-02] MEDS: LACTATED RINGERS 1,000 ML 125 ML IV CONT ×3 (00:06→19:47)
[2020-07-02 00:10] LABS: Glucose Point of Care 173 (65-105)
[2020-07-02] MEDS: LORazepam (*CRX) 0.5 MG TABLET PO ×2 (03:32→23:57)
[2020-07-02] MEDS: LEVOTHYROXINE SODIUM 50 MCG TABLET PO (05:27)
[2020-07-02] MEDS: INSULIN ASPART (*BKC) 100 UNITS/ML SUB-Q ×2 (05:32→18:24)
[2020-07-02 05:39] LABS: Glucose Point of Care 210 (65-105)
[2020-07-02 05:54] LABS: Basophils Percent Auto 0.5 % (0.2-1.2); Eosinophils Absolute Auto 0.1 K/mm3 (0-0.3); Eosinophils Percent Auto 0.6 % (0-4.4); Hematocrit 32.5 % (37.0-47.0); Hemoglobin 10.2 g/dL (12.0-15.0); Immature Granulocyte Absolute 0.12 K/mm3 (0.00-0.031); Immature Granulocyte Percent A 1.4 % (0-0.5); Lymphocytes Absolute Auto 0.86 K/mm3 (0.9-3.2); Lymphocytes Percent Auto 10.3 % (18.3-44.2); Mean Corpuscular HGB Conc 31.4 g/dl (32-36); Mean Corpuscular Hemoglobin 27.3 pg (26-34); Mean Corpuscular Volume 86.9 fl (80-100); Mean Platelet Volume 9.7 fl (7.4-10.4); Monocytes Absolute Auto 0.9 K/mm3 (0.1-0.6); Monocytes Percent Auto 10.8 % (2.6-8.5); Neutrophils Absolute Auto 6.4 K/mm3 (1.3-6.7); Neutrophils Percent Auto 76.4 % (45.5-73.1); Platelet Count Result 173 k/mm3 (150-375); Red Blood Count 3.74 M/mm3 (4.2-5.4); White Blood Count 8.4 K/mm3 (4.5-10.0)
[2020-07-02 06:15] LABS: Alanine Aminotransferase 26 U/L (4-35); Alkaline Phosphatase 127 U/L (38-126); Anion Gap 9 mmol/L (8-16); Aspartate Amino Transferase 42 U/L (14-36); Bilirubin,Total 0.6 mg/dL (0.2-1.3); Blood Urea Nitrogen 15 mg/dL (7-17); Calcium 7.7 mg/dL (8.4-10.2); Carbon Dioxide 28 mmol/L (22-30); Chloride 98 mmol/L (98-107); Estimated CRCL calculation 100 ml/min; Estimated Glomerular Filt Rate > 60; Glucose 207 mg/dL (65-105); Magnesium 1.8 mg/dL (1.6-2.3); Potassium 3.7 mmol/L (3.4-5.0); Sodium 135 mmol/L (137-145)
[2020-07-02 07:11] LABS: CRP 38.8 mg/dL (<1.0)
--- NOTE | 2020-07-02 07:13 | WPDUROPN2 ---
Progress Note: A&P Assessment and Plan (1) Acute unilateral obstructive uropathy: Code(s): N13.9 - Obstructive and reflux uropathy, unspecified Status: Acute (2) Hydronephrosis due to obstruction of ureter: Code(s): N13.2 - Hydronephrosis with renal and ureteral calculous obstruction Status: Acute (3) Urinary tract infection: Qualifiers: Hematuria presence: with hematuria Urinary tract infection type: site unspecified Qualified Code(s): N39.0 - Urinary tract infection, site not specified; R31.9 - Hematuria, unspecified Code(s): N39.0 - Urinary tract infection, site not specified Status: Acute Assessment and Plan: Obstructive pyelonephritis resolving as expected - anticipate several more days of diminishing/intermittently spiking fevers (explained to pt.). Improved leukocytosis is encouraging. Continue Ceftriaxone peinding culture. Will get KUB to determine stone position after stent placement. 07/02/2020 Persistent fever/improving leukocytosis - await final blood and urine cultures. KUB: stent in good position / lightly calcified stone in right lower pole. Subjective Subjective Date/Time Seen: 07/02/20 07:13 Persistent fever with improving leukocytosis - not unusual for pyelo. Review of Systems Cardiovascular: Cardiovascular: Denies chest pain, Denies lightheadedness, Denies palpitations and Denies dyspnea Respiratory: Respiratory: Denies dyspnea Gastrointestinal: Gastrointestinal: Denies diarrhea, Denies nausea and Denies vomiting Genitourinary: Genitourinary: Denies hematuria and Denies dysuria Endocrine: Endocrine: Denies palpitations Exam Const: General: no acute distress Resp: Effort & Inspection: normal respiratory effort GI: Inspection: non-distended GI Palp: No abdominal tenderness and No Guarding due to palpation present (GI) Auscultation: normal bowel sounds Objective Data Vital Signs Vital Signs: Vital Signs - 24 hr 07/01/20 10:00 07/01/20 13:08 07/01/20 13:10 Temperature 99.2 F 100.6 F H 100.6 F H Pulse Rate 87 96 Respiratory Rate 15 20 Blood Pressure 105/58 L 138/69 Pulse Oximetry 97 98 07/01/20 13:40 07/01/20 14:00 07/01/20 18:00 Temperature 100.1 F H 100.1 F H 98.7 F Pulse Rate 95 85 Respiratory Rate 23 H 17 Blood Pressure 124/62 124/71 Pulse Oximetry 97 99 07/01/20 20:36 07/01/20 21:06 07/01/20 21:41 Temperature 102.7 F H 100.0 F H 102.7 F H Pulse Rate 98 Respiratory Rate 20 Blood Pressure 127/78 Pulse Oximetry 97 07/01/20 22:32 07/02/20 02:00 07/02/20 05:25 Temperature 100 F H 99.1 F 102.4 F H Pulse Rate 87 Respiratory Rate 16 Blood Pressure 118/71 Pulse Oximetry 96 07/02/20 05:38 07/02/20 05:55 07/02/20 06:54 Temperature 102.4 F H 99.0 F 99.0 F Pulse Rate 102 H Respiratory Rate 16 Blood Pressure 127/73 Pulse Oximetry 95 Intake/Output Intake/Output: Intake & Output 06/29/20 06/30/20 07/01/20 07/02/20 23:59 23:59 23:59 23:59 Intake Total 2915 3810 2100 Output Total 275 2325 3600 Balance 2640 1485 -1500 Meds/Results Medications: Active Medications Generic Name Dose Route Start Last Admin Trade Name Freq PRN Reason Stop Dose Admin Citalopram Hydrobromide 20 mg 07/01/20 09:00 07/01/20 08:54 Citalopram Hydrobromide 20 Mg Tablet PO 20 mg DAILY MARCIE Administration Dextrose 12.5 gm 06/30/20 16:42 Dextrose 50% 25 Gm/50 Ml Syringe IV PUSH PRN PRN Hypoglycemia Protocol Diphenhydramine HCl 25 mg 06/30/20 16:42 Diphenhydramine Hcl Inj 50 Mg/Ml Vial IV PUSH Q4H PRN Itching Glucagon 1 mg 06/30/20 16:42 Glucagon For Inj 1 Mg Vial IM PRN PRN Hypoglycemia Protocol Glucose 15 gm 06/30/20 16:42 Glucose Oral Gel 15 Gm Of Glucse In 37.5 Gm Tube PO PRN PRN Hypoglycemia Protocol Hydralazine HCl 10 mg 06/30/20 17:35 Hydralazine Hcl 20 Mg/Ml Vial IV PU
--- NOTE | 2020-07-02 07:39 | PM.IMPN ---
Progress Note: A&P Assessment and Plan (1) Sepsis: Code(s): A41.9 - Sepsis, unspecified organism Status: Acute Assessment and Plan: With leukocytosis improving, WBC 15 to 8.4 now. Fever resolved and then returned late this afternoon. Heart rate 50-80s now, tachycardia resolved, Mag level 1.8. source is obstructive pyelonephritis. Lactic acid was elevated at 2.2 then improved to 1.6. hemodynamically stable without hypotension, BP 127/73. Blood cultures showed no growth. Urine cultures show Proteus sensitive to Rocephin. Continue IV fluids and IV antibiotics. Continue to monitor vitals, intake & output. (2) Acute unilateral obstructive uropathy: Code(s): N13.9 - Obstructive and reflux uropathy, unspecified Status: Acute Assessment and Plan: CT abd/pelvis demonstrated right 14mm proximal ureteral stone with hydronephrosis of the right kidney and associated UTI. underwent cystoscopy with right retrograde pyelogram and right ureteral stent placement by Dr. Quinn 06/30. purulence returned during the cystoscopy which was sent for culture. on IV ceftriaxone. Last imaging showed: 1. Stone in right kidney lower pole.2. Right internal ureteral stent in expected position. Patient may have to undergo shockwave lithotripsy due to persistent right Lower Pole kidney stone. Will likely discontinue Taylor tomorrow morning and plan for discharge. Taylor is still in place. Will need to discontinue prior to discharge. Appreciate urology input and management. (3) Urinary tract infection: Qualifiers: Hematuria presence: with hematuria Urinary tract infection type: site unspecified Qualified Code(s): N39.0 - Urinary tract infection, site not specified; R31.9 - Hematuria, unspecified Code(s): N39.0 - Urinary tract infection, site not specified Status: Acute Assessment and Plan: Urinalysis was suspicious for UTI. febrile with Tmax 103.2F Blood and urine cultures were ordered and are pending. Urology is on board and input is appreciated. Continue IV ceftriaxone for Proteus according to sensitivities. Continue IV fluids. Continue antipyretics and antiemetics as needed. (4) Hydronephrosis due to obstruction of ureter: Code(s): N13.2 - Hydronephrosis with renal and ureteral calculous obstruction Status: Acute Assessment and Plan: As above. See obstructive and reflux uropathy unilateral. (5) Type 2 diabetes mellitus with hyperglycemia: Qualifiers: Diabetes mellitus chcf insulin use: without buttermaker use Qualified Code(s): E11.65 - Type 2 diabetes mellitus with hyperglycemia Code(s): E11.65 - Type 2 diabetes mellitus with hyperglycemia Status: Chronic Assessment and Plan: Hemoglobin A1c is elevated at 9.2%. She was recently referred to endocrinology and has an outpatient appointment restart oral hypoglycemics when patient diet advances. Continue ACHS glucose monitoring, sliding scale insulin, and hypoglycemia protocol. need to follow-up with endocrinology outpatient (6) Acute renal failure: Code(s): N17.9 - Acute kidney failure, unspecified Status: Acute Assessment and Plan: Possibly secondary to acute infection and/or dehydration due to poor PO intake and vomiting and/or hydronephrosis due to obstructive stone. Cr was elevated 1.3 and BUN 19; but creatinine improved to 0.8. Baseline creatinine appears to be 0.5. Continue IV fluids. Renally dose medications and avoid nephrotoxins. (7) Hypothyroidism, unspecified: Qualifiers: Hypothyroidism type: unspecified Qualified Code(s): E03.9 - Hypothyroidism, unspecified Code(s): E03.9 - Hypothyroidism, unspecified Status: Chronic Assessment and Plan: TSH is 1.23 Continue levothyroxine. (8) Hypertension: Code(s): I10 - Essential (primary) hypertension Status: Chronic Assessment
[2020-07-02] MEDS: LORATADINE 10 MG TABLET PO (08:07)
[2020-07-02] MEDS: SIMVASTATIN 20 MG TABLET PO (08:07)
[2020-07-02] MEDS: CITALOPRAM HYDROBROMIDE 20 MG TABLET PO (08:07)
[2020-07-02 11:42] LABS: Glucose Point of Care 172 (65-105)
[2020-07-02] MEDS: ONDANSETRON INJ 4 MG/2 ML VIAL IV PUSH (14:45)
[2020-07-02 18:15] LABS: Glucose Point of Care 242 (65-105)
[2020-07-02] MEDS: INSULIN GLARGINE (*BKC) 100 UNITS/ML 10 UNITS SUB-Q (20:27)
[2020-07-02 20:38] LABS: Glucose Point of Care 192 (65-105)
[2020-07-03] VITALS (11 sets, daily range): BP systolic 112–132; BP diastolic 51–65; PULSE 72–102; RESP 15–20; TEMP 36.6–37.9; O2SAT 96–99
[2020-07-03 03:53] LABS: IFOB Positive Control Positive; Immunochemical Fecal Occult Bl Negative (N)
[2020-07-03] MEDS: LACTATED RINGERS 1,000 ML 125 ML IV CONT ×2 (03:55→13:42)
[2020-07-03] MEDS: LEVOTHYROXINE SODIUM 50 MCG TABLET PO (06:36)
[2020-07-03 07:50] LABS: Glucose Point of Care 168 (65-105)
[2020-07-03 08:10] LABS: Basophils Absolute Auto 0.1 K/mm3 (0.0-0.1); Basophils Percent Auto 0.5 % (0.2-1.2); Eosinophils Absolute Auto 0.1 K/mm3 (0-0.3); Eosinophils Percent Auto 1.5 % (0-4.4); Hematocrit 30.4 % (37.0-47.0); Hemoglobin 9.4 g/dL (12.0-15.0); Immature Granulocyte Absolute 0.35 K/mm3 (0.00-0.031); Immature Granulocyte Percent A 3.8 % (0-0.5); Lymphocytes Absolute Auto 1.39 K/mm3 (0.9-3.2); Mean Corpuscular HGB Conc 30.9 g/dl (32-36); Mean Corpuscular Hemoglobin 26.6 pg (26-34); Mean Corpuscular Volume 86.1 fl (80-100); Mean Platelet Volume 9.5 fl (7.4-10.4); Monocytes Percent Auto 10.8 % (2.6-8.5); Neutrophils Absolute Auto 6.4 K/mm3 (1.3-6.7); Neutrophils Percent Auto 68.4 % (45.5-73.1); Platelet Count Result 188 k/mm3 (150-375); Red Blood Count 3.53 M/mm3 (4.2-5.4); Red Cell Distribution Width 14.2 % (11.5-14.5); White Blood Count 9.3 K/mm3 (4.5-10.0)
[2020-07-03 08:15] LABS: Alanine Aminotransferase 22 U/L (4-35); Alkaline Phosphatase 134 U/L (38-126); Anion Gap 9 mmol/L (8-16); Aspartate Amino Transferase 29 U/L (14-36); Bilirubin,Total 0.4 mg/dL (0.2-1.3); Blood Urea Nitrogen 11 mg/dL (7-17); Calcium 8.1 mg/dL (8.4-10.2); Carbon Dioxide 32 mmol/L (22-30); Chloride 101 mmol/L (98-107); Estimated CRCL calculation 113 ml/min; Estimated Glomerular Filt Rate > 60; Glucose 165 mg/dL (65-105); Potassium 3.7 mmol/L (3.4-5.0); Sodium 142 mmol/L (137-145)
[2020-07-03 08:31] LABS: CRP 26.1 mg/dL (<1.0)
[2020-07-03] MEDS: LORATADINE 10 MG TABLET PO (08:52)
[2020-07-03] MEDS: CITALOPRAM HYDROBROMIDE 20 MG TABLET PO (08:52)
[2020-07-03] MEDS: SIMVASTATIN 20 MG TABLET PO (08:52)
[2020-07-03 11:46] LABS: Glucose Point of Care 212 (65-105)
[2020-07-03] MEDS: INSULIN ASPART (*BKC) 100 UNITS/ML SUB-Q (11:54)
--- NOTE | 2020-07-03 13:04 | WPDUROPN2 ---
Progress Note: A&P Assessment and Plan (1) Bacterial infection due to Proteus mirabilis: Code(s): A49.8 - Other bacterial infections of unspecified site Status: Acute Assessment and Plan: - fever and leukocytosis improving - KUB: stent in good position / lightly calcified stone in right lower pole. -okay to remove Taylor as patient has been afebrile -okay to discharge home on antibiotics when stable per primary team, the patient to follow-up in the office to discuss definitive stone management. She will likely proceed with outpatient ureteroscopy. (2) Sepsis: Code(s): A41.9 - Sepsis, unspecified organism Status: Acute (3) Kidney stones: Code(s): N20.0 - Calculus of kidney Status: Chronic (4) Acute renal failure: Code(s): N17.9 - Acute kidney failure, unspecified Status: Acute Subjective Subjective Date/Time Seen: 07/03/20 13:04 Feeling better today Exam HENMT: Head: normal to inspection Resp: Effort & Inspection: normal respiratory effort Urinary Catheter: Urinary Catheter: patent and draining and urine clear Objective Data Vital Signs Vital Signs: Vital Signs - 24 hr 07/02/20 14:00 07/02/20 14:44 07/02/20 15:14 Temperature 38.1 C H 38.1 C H 37.2 C Pulse Rate 57 L Respiratory Rate 22 H Blood Pressure 130/61 Pulse Oximetry 97 07/02/20 17:47 07/02/20 22:00 07/02/20 23:58 Temperature 36.9 C 36.4 C 37.9 C H Pulse Rate 82 81 Respiratory Rate 20 20 Blood Pressure 128/73 113/66 Pulse Oximetry 96 99 07/03/20 00:18 07/03/20 00:28 07/03/20 01:05 Temperature 37.9 C H 37.2 C 37.2 C Pulse Rate 102 H Respiratory Rate 20 Blood Pressure 123/65 Pulse Oximetry 97 07/03/20 02:00 07/03/20 06:00 07/03/20 08:52 Temperature 36.7 C 36.6 C Pulse Rate 90 82 Respiratory Rate 20 20 18 Blood Pressure 116/59 L 114/58 L Pulse Oximetry 96 98 97 07/03/20 09:50 Temperature 37.7 C H Pulse Rate 80 Respiratory Rate 18 Blood Pressure 127/62 Pulse Oximetry 96 Intake/Output Intake/Output: Intake & Output 06/30/20 07/01/20 07/02/20 07/03/20 23:59 23:59 23:59 23:59 Intake Total 2910 3810 6640 2370 Output Total 795 1677 8647 3678 Balance 2643 8219 -928 -854 Meds/Results Medications: Active Medications Generic Name Dose Route Start Last Admin Trade Name Freq PRN Reason Stop Dose Admin Citalopram Hydrobromide 20 mg 07/01/20 09:00 07/03/20 08:52 Citalopram Hydrobromide 20 Mg Tablet PO 20 mg DAILY MARCIE Administration Dextrose 12.5 gm 06/30/20 16:42 Dextrose 50% 25 Gm/50 Ml Syringe IV PUSH PRN PRN Hypoglycemia Protocol Diphenhydramine HCl 25 mg 06/30/20 16:42 Diphenhydramine Hcl Inj 50 Mg/Ml Vial IV PUSH Q4H PRN Itching Glucagon 1 mg 06/30/20 16:42 Glucagon For Inj 1 Mg Vial IM PRN PRN Hypoglycemia Protocol Glucose 15 gm 06/30/20 16:42 Glucose Oral Gel 15 Gm Of Glucse In 37.5 Gm Tube PO PRN PRN Hypoglycemia Protocol Hydralazine HCl 10 mg 06/30/20 17:35 Hydralazine Hcl 20 Mg/Ml Vial IV PUSH Q8H PRN Blood Pressure - High Lactated Ringer's 1,000 mls @ 125 mls/hr 06/30/20 11:40 07/03/20 11:49 Lr - Lactated Ringers Iv IV CONT 125 mls/hr .Q8H MARCIE Infusion Ceftriaxone Sodium 2 gm in 100 mls @ 200 mls/hr 07/01/20 09:00 07/03/20 09:20 Rocephin 2 Gm/D5w 100 Ml IVPB Infused Q24H MARCIE Infusion Dextrose 1,000 mls @ 100 mls/hr 06/30/20 16:42 Dextrose 5% 1,000 Ml IVPB PRN PRN Hypoglycemia Protocol Insulin Aspart 2 - 5 units 07/03/20 08:00 07/03/20 11:54 Insulin Aspart (*Bkc) 100 Units/Ml SUB-Q 2 units TIDWM MARCIE Administration Protocol Insulin Glargine 10 units 07/01/20 21:00 07/02/20 20:27 Insulin Glargine (*Bkc) 100 Units/Ml SUB-Q 10 units HS MARCIE Administration Levothyroxine Sodium 50 mcg 07/01/20 06:30 07/03/20 06:36 Levothyroxine Sodium 50 Mcg Tablet
--- NOTE | 2020-07-03 14:36 | PM.IMPN ---
Progress Note: A&P Assessment and Plan (1) Sepsis: Code(s): A41.9 - Sepsis, unspecified organism Status: Acute Assessment and Plan: With leukocytosis improving, WBC 15 to 8.4 and 9.3 now. Fever resolved and then returned at [place] Heart rate 50-80s now, tachycardia resolved, Mag level 1.8. source was obstructive pyelonephritis. Lactic acid was elevated at 2.2 then improved to 1.6. hemodynamically stable without hypotension, BP 116/59 Blood cultures showed no growth. Urine cultures show Proteus sensitive to Rocephin and CIPRO. D/C IV fluids D/C krueger, planning on discharge tomorrow. (2) Acute unilateral obstructive uropathy: Code(s): N13.9 - Obstructive and reflux uropathy, unspecified Status: Acute Assessment and Plan: CT abd/pelvis demonstrated right 14mm proximal ureteral stone with hydronephrosis of the right kidney and associated UTI. underwent cystoscopy with right retrograde pyelogram and right ureteral stent placement by Dr. Quinn 06/30. purulence returned during the cystoscopy which was sent for culture. on IV ceftriaxone. Last imaging showed: 1. Stone in right kidney lower pole.2. Right internal ureteral stent in expected position. D/C Krueger is still in place. Appreciate urology input and management. (3) Urinary tract infection: Qualifiers: Hematuria presence: with hematuria Urinary tract infection type: site unspecified Qualified Code(s): N39.0 - Urinary tract infection, site not specified; R31.9 - Hematuria, unspecified Code(s): N39.0 - Urinary tract infection, site not specified Status: Acute Assessment and Plan: Proteus UTI Urology is on board and input is appreciated. Continue IV ceftriaxone for Proteus tolerating oral fluids/hydration Continue antipyretics and antiemetics as needed. (4) Hydronephrosis due to obstruction of ureter: Code(s): N13.2 - Hydronephrosis with renal and ureteral calculous obstruction Status: Acute Assessment and Plan: As above. See obstructive and reflux uropathy unilateral. 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 She was recently referred to endocrinology and has an outpatient appointment restart oral hypoglycemics when patient diet advances. Continue ACHS glucose monitoring, sliding scale insulin, and hypoglycemia protocol. need to follow-up with endocrinology outpatient (6) Acute renal failure: Code(s): N17.9 - Acute kidney failure, unspecified Status: Acute Assessment and Plan: Possibly secondary to acute infection and/or dehydration due to poor PO intake and vomiting and/or hydronephrosis due to obstructive stone. Cr was elevated 1.3 and BUN 19; but creatinine improved to 0.8 and 0.7. Baseline creatinine appears to be 0.5. Continue oral hydration. (7) Hypothyroidism, unspecified: Qualifiers: Hypothyroidism type: unspecified Qualified Code(s): E03.9 - Hypothyroidism, unspecified Code(s): E03.9 - Hypothyroidism, unspecified Status: Chronic Assessment and Plan: TSH is 1.23 Continue levothyroxine. (8) Hypertension: Code(s): I10 - Essential (primary) hypertension Status: Chronic Assessment and Plan: Blood pressures have been stable, 127/73 with HR 80-90s. Lisinopril was held due to BLAIR at admission. Creatinine improved from 1.3 to 0.8 to 0.7 SBPs are already well controlled 110s-120s (9) Depression with anxiety: Code(s): F41.8 - Other specified anxiety disorders Status: Acute Assessment and Plan: Mood is stable. Continue citalopram. Patient reported
--- NOTE | 2020-07-03 15:24 | PC.NURSE ---
On 07/03/20, the student, Avtar Meyer, provided care and completed [facility] documentation on this patient. I have reviewed the student's documentation and agree with the findings.
[2020-07-03 16:47] LABS: Glucose Point of Care 162 (65-105)
[2020-07-03] MEDS: SACCHAROMYCES BOULARDII 250 MG CAPSULE PO (16:55)
[2020-07-03] MEDS: INSULIN GLARGINE (*BKC) 100 UNITS/ML 10 UNITS SUB-Q (20:32)
[2020-07-03 20:38] LABS: Glucose Point of Care 170 (65-105)
[2020-07-04 02:00] VITALS: BP 135/66; PULSE 85; RESP 20; TEMP 36.6; O2SAT 97
[2020-07-04 05:49] VITALS: BP 120/60; PULSE 79; RESP 20; TEMP 37; O2SAT 98
[2020-07-04 06:15] LABS: Alanine Aminotransferase 21 U/L (4-35); Albumin Level 2.9 g/dL (3.5-5.1); Alkaline Phosphatase 129 U/L (38-126); Anion Gap 9 mmol/L (8-16); Aspartate Amino Transferase 30 U/L (14-36); Bilirubin,Total 0.3 mg/dL (0.2-1.3); Blood Urea Nitrogen 9 mg/dL (7-17); Calcium 7.8 mg/dL (8.4-10.2); Carbon Dioxide 30 mmol/L (22-30); Chloride 101 mmol/L (98-107); Estimated CRCL calculation 113 ml/min; Estimated Glomerular Filt Rate > 60; Glucose 165 mg/dL (65-105); Magnesium 1.4 mg/dL (1.6-2.3); Potassium 3.1 mmol/L (3.4-5.0); Sodium 140 mmol/L (137-145)
[2020-07-04 07:57] LABS: Glucose Point of Care 140 (65-105)
[2020-07-04 08:17] VITALS: RESP 20; O2SAT 100
[2020-07-04] MEDS: CITALOPRAM HYDROBROMIDE 20 MG TABLET PO (08:17)
[2020-07-04] MEDS: SACCHAROMYCES BOULARDII 250 MG CAPSULE PO ×2 (08:17→17:37)
[2020-07-04] MEDS: LORATADINE 10 MG TABLET PO (08:17)
[2020-07-04] MEDS: SIMVASTATIN 20 MG TABLET PO (08:17)
[2020-07-04 10:00] VITALS: BP 124/63; PULSE 75; RESP 20; TEMP 36.3; O2SAT 98
[2020-07-04] MEDS: LEVOTHYROXINE SODIUM 50 MCG TABLET PO (10:39)
[2020-07-04 11:33] LABS: Glucose Point of Care 180 (65-105)
[2020-07-04 14:00] VITALS: BP 121/57; PULSE 81; RESP 16; TEMP 36.6; O2SAT 98
--- NOTE | 2020-07-04 15:12 | PM.DS ---
DS: Admitting Diagnosis Admitting Diagnosis Admitting Diagnosis: Obstructive uropathy, UTI DS: Discharge Diagnosis Discharge Diagnosis (1) Sepsis: Code(s): A41.9 - Sepsis, unspecified organism Status: Acute Assessment and Plan: With leukocytosis improving, WBC 15 to 8.4 and 9.3 now. Fever resolved and then returned at [place] Heart rate 50-80s now, tachycardia resolved, Mag level 1.8. source was obstructive pyelonephritis. Lactic acid was elevated at 2.2 then improved to 1.6. hemodynamically stable Blood cultures showed no growth. Urine cultures show Proteus sensitive to Rocephin and CIPRO(has cross reaction with her antidepressant), so I have discharged her on Cefdinir. tolerating oral hydration well and eating with no nausea vomiting, voiding and having bowel movements discharge today (2) Acute unilateral obstructive uropathy: Code(s): N13.9 - Obstructive and reflux uropathy, unspecified Status: Acute Assessment and Plan: CT abd/pelvis demonstrated right 14mm proximal ureteral stone with hydronephrosis of the right kidney and associated UTI. underwent cystoscopy with right retrograde pyelogram and right ureteral stent placement by Dr. Quinn 06/30. purulence returned during the cystoscopy which was sent for culture. on IV ceftriaxone. Last imaging showed: 1. Stone in right kidney lower pole.2. Right internal ureteral stent in expected position. Urine cultures show Proteus sensitive to Rocephin and CIPRO(has cross reaction with her antidepressant), so I have discharged her on Cefdinir. tolerating oral hydration well and eating with no nausea vomiting, voiding and having bowel movements discharge today Appreciate urology input and management. (3) Urinary tract infection: Qualifiers: Hematuria presence: with hematuria Urinary tract infection type: site unspecified Qualified Code(s): N39.0 - Urinary tract infection, site not specified; R31.9 - Hematuria, unspecified Code(s): N39.0 - Urinary tract infection, site not specified Status: Acute Assessment and Plan: Proteus UTI Urology is on board and input is appreciated. Continue IV ceftriaxone for Proteus tolerating oral fluids/hydration Continue antipyretics and antiemetics as needed. Urine cultures show Proteus sensitive to Rocephin and CIPRO(has cross reaction with her antidepressant), so I have discharged her on Cefdinir. tolerating oral hydration well and eating with no nausea vomiting, voiding and having bowel movements discharge today (4) Hydronephrosis due to obstruction of ureter: Code(s): N13.2 - Hydronephrosis with renal and ureteral calculous obstruction Status: Acute Assessment and Plan: As above. See obstructive and reflux uropathy unilateral. resolved (5) Type 2 diabetes mellitus with hyperglycemia: Qualifiers: Diabetes mellitus fci insulin use: without keno terminal operator use Qualified Code(s): E11.65 - Type 2 diabetes mellitus with hyperglycemia Code(s): E11.65 - Type 2 diabetes mellitus with hyperglycemia Status: Chronic Assessment and Plan: Hemoglobin A1c is elevated at 9.2%. She was recently referred to endocrinology and has an outpatient appointment restart oral hypoglycemics when patient diet advances. Continue ACHS glucose monitoring, sliding scale insulin, and hypoglycemia protocol. need to follow-up with endocrinology outpatient chronic and controlled (6) Acute renal failure: Code(s): N17.9 - Acute kidney failure, unspecified Status: Acute Assessment and Plan: Possibly secondary to acute infection and/or dehydration due to poor PO intake and vomiting and/or hydronephrosis due to obstructive stone. Cr was elevated 1.3 and BUN 19; but creatinine improved to 0.8 and 0.7. Baseline creatinine appears to be 0.5. Continue oral hydration. resolved (7) Hypothyroidism, unspecified: Qualifiers:
[2020-07-04 16:41] LABS: Glucose Point of Care 198 (65-105)
--- NOTE | 2020-07-08 23:40 | PM.DS ---
DS: Admitting Diagnosis Admitting Diagnosis Admitting Diagnosis: Obstructive uropathy, UTI DS: Summary Hospital Course Reason for hospitalization: sepsis, Acute unilateral obstructive uropathy, , UTI, type 2 diabetes with hyperglycemia, acute renal failure, hypertension, bacterial infection due to Proteus Mirabilis Hospital Course: improved with antibiotics and IV fluids and underwent cystoscopy with right ureter stent placement by Dr. Quinn on June 30. Status at Discharge Cognitive/behavioral status at discharge: A & O x3 Functional status at discharge: independent ambulation Overall status at discharge: patient is back to baseline Time Spent with Patient Time attestation: Total time spent providing and/or coordinating discharge services:90 minutes Time spent: Greater than 30 minutes Discharge Plan Discharge Attending physician on discharge: Aubrey Luther Consulting providers: Irene Quinn ; Zena Rodriguez ; Mamadou Greenwood ; Kalpesh Bonilla ; Michael Bey ; Sae Holland V. Discharging Clinician: Sepideh Virgen Anticipated Discharge Date/Time: 07/04/20 14:47 Patient Disposition: Home, Self-Care Activity: may shower and no straining Diet: heart healthy and diabetic Discharge Instructions: Urology Instructions: Call office to schedule follow up to discuss stone treatment and repeat urine culture. May return to work on Wednesday, Jul. 2. 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 If you developed chills or fever>101.5, pain with urination, flank pain, incontinent diarrhea, or more than 3 loose stools per day - then seek medical attention immediately. You should follow-up with your primary care doctor in 3-7 days. If you are still having loose stools by then remind them you have been on antibiotics and you may need to have a full stool culture done. Take your oral antibiotic Cipro as prescribed and your probiotics. Stay well hydrated. -->You have not been on your glimepiride or metformin while in the hospital. Your glucose level yesterday was 165 and again your glucose level today was 165 on your lab work drawn in the mornings. Be sure to check your glucose levels with your glucometer at home at least 2 -4 times each day after restarting your diabetes medications so that you do not drop or experience hypoglycemia. Depending on the type of diet and eating habits you have after discharge at home, I would also advise that you restart your metformin and monitor glucose levels for a day or 2, if they are well controlled without the glimepiride, then you need to discuss that with your primary care provider. Make sure you are up to date on screening colonoscopy. Patient Instructions: Antibiotic Form, Kidney Stones (DC), Urinary Tract Infection in Women (DC), Ureteral Stent Placement (DC) Patient Language: Maltese Stand Alone Forms: General Discharge Information, Work/School Release IP Follow-up/Referrals: Irene Quinn MD [Physician] - Vamshi Felix DO [Primary Care Provider] - Discharge Medications: New Saccharomyces boulardii [Florastor] 250 mg Capsule 250 mg PO BID 30 Days Qty: 60 RF: 0 cefdinir 300 mg capsule 300 mg PO Q12H 7 Days Qty: 14 RF: 0 Continued aspirin 81 mg tablet,delayed release (DR/EC) 81 mg PO DAILY RF: 0 loratadine [Claritin] 10 mg tablet 10 mg PO DAILY RF: 0 metformin 500 mg tablet 1,000 mg PO BID 90 Days Qty: 360 RF: 1 lisinopril [Prinivil] 20 mg tablet 20 mg PO DAILY Qty: 90 RF: 1 simvastatin 20 mg tablet 20 mg PO DAILY Qty: 90 RF: 1 citalopram [Celexa] 20 mg tablet 20 mg PO DAILY Qty: 90 RF: 1 glimepiride 4 mg tablet 4 mg PO BID 90 Days Qty: 180 RF: 0 levothyroxine [Synthroid] 50 mcg tablet 50 mcg PO DAILY Qty: 90 RF: 1 Date of admission: 07/01/20 10:24 Primary Care Provider: Vamshi Felix Admitting Provider: Altaf Salmeron
== END 2020-07-04 18:05 | disposition home or self-care (01) | DRG 854 ==
LOC: ANHED 11:39 → ANHSURGERY 11:50 → ANH2MED 14:30
PROVIDERS: Nurse Practitioner; Physician Assistant; Urology; Admitting Provider Internal Medicine; Emergency Provider Emergency Medicine; PCP Internal Medicine; Visit Provider Nurse Practitioner
PROC: 0T768DZ Dilation of Right Ureter with Intraluminal Device, Via Natural or Artificial Opening Endoscopic (ICD-10-PCS; CPT 52352; principal; 2020-06-30 12:00)
DX: A41.9 Sepsis, unspecified organism (principal); N13.6 Pyonephrosis; Z68.43 Body mass index [BMI] 50.0-59.9, adult; N17.9 Acute kidney failure, unspecified; E66.01 Morbid (severe) obesity due to excess calories; R31.9 Hematuria, unspecified; B96.4 Proteus (mirabilis) (morganii) as the cause of diseases classified elsewhere; I10 Essential (primary) hypertension; E03.9 Hypothyroidism, unspecified; E11.65 Type 2 diabetes mellitus with hyperglycemia; F41.8 Other specified anxiety disorders; D64.9 Anemia, unspecified; Z79.84 Long term (current) use of oral hypoglycemic drugs; Z87.891 Personal history of nicotine dependence
CPT/HCPCS: 36415; 74018; 74176; 74420; 80048; 80053; 81001; 82274; 83036; 83605; 83735; 84443; 85025; 86140; 87040; 87077; 87086; 87088; 87186; 96361; 96365; 96374; 96375; 96376; 97161; 97165; 99285; A9270; C1769; C1887; C2617; G0378; J0131; J0696; J1815; J1885; J2250; J2405; J2550; J2704; J3010; J7030; J7120; Q9966

== ENCOUNTER 2020-07-24 16:18 | Outpatient (CLI) | payer OTHER, SELFPAY ==
[2020-07-24 18:59] LABS: Creatinine Urine 36.2 mg/dL
[2020-07-24 19:28] LABS: MALB Creatinine Ratio 609.9 mg/g (0-30); Microalbumin Urine Random 220.8 mg/L (0-16.7)
== END 2020-07-24 16:19 | disposition home or self-care (01) ==
LOC: ANHLAB 16:21
PROVIDERS: Physician Assistant; PCP Internal Medicine; Visit Provider Urology
DX: E11.65 Type 2 diabetes mellitus with hyperglycemia (principal); E03.9 Hypothyroidism, unspecified; N20.0 Calculus of kidney
CPT/HCPCS: 82043; 87086; 87186

== ENCOUNTER 2020-07-27 01:15 | Outpatient (CLI) | payer OTHER, SELFPAY ==
[2020-07-27 19:10] LABS: SARS-CoV-2 RNA PCR Negative
== END 2020-07-27 01:16 | disposition home or self-care (01) ==
LOC: ANHCOVIDDT 01:15
PROVIDERS: PCP Internal Medicine; Visit Provider Urology
DX: Z01.818 Encounter for other preprocedural examination (principal); Z20.828 Contact with and (suspected) exposure to other viral communicable diseases
CPT/HCPCS: 87635; C9803; U0003

== ENCOUNTER 2020-07-31 00:17 | Day surgery (SDC) | payer OTHER, SELFPAY ==
[2020-07-18 15:59] VITALS: BMI 49.5
--- NOTE | 2020-07-30 09:10 | WPDANESEPPF ---
Anes - Initial Pre Proc Eval Procedure: Operation Date: 07/31/20 12:00 Proposed Procedures p Cystoscopy, Right Ureteroscopy, Right Retrograde Pyelogram, Right Stone Extraction, Right Stent Exchange - Irene Quinn MD s Possible Holmium Laser Procedure - Irene Quinn MD Date/Time: 07/30/20 09:10 Surgeon: Irene Quinn MD Pre Op Diagnosis: Right Kidney Stone Patient Data Age: 55 Gender: F Height: 1.65 m Weight: 135 kg Allergies Allergy/AdvReac Type Severity Reaction Status Date / Time No Known Allergies Allergy Mild Verified 07/31/20 10:12 Home Medications Medication Instructions Recorded Confirmed Type aspirin 81 mg tablet,delayed 81 mg PO DAILY 07/24/19 07/31/20 History release loratadine 10 mg tablet 10 mg PO DAILY 07/24/19 07/31/20 History lisinopril 20 mg tablet 20 mg PO DAILY #90 tablet 02/11/20 07/31/20 Rx simvastatin 20 mg tablet 20 mg PO DAILY #90 tablet 02/11/20 07/31/20 Rx metformin 500 mg tablet 1,000 mg PO BID 90 Days #360 tablet 02/27/20 07/31/20 Rx citalopram 20 mg tablet 20 mg PO DAILY #90 tablet 05/16/20 07/31/20 Rx glimepiride 4 mg tablet 4 mg PO BID 90 Days #180 tablet 05/16/20 07/31/20 Rx levothyroxine 50 mcg tablet 50 mcg PO DAILY #90 tablet 05/19/20 07/31/20 Rx Saccharomyces boulardii [Florastor] 250 mg PO BID 30 Days #60 cap 07/04/20 07/31/20 Rx Patient hx anesthesia problems: none Family hx anesthesia problems: none [facility] Past Medical History Medical History Depression with anxiety Diverticulosis Essential hypertension Hypertension Hypothyroidism, unspecified Kidney stones Type 2 diabetes mellitus with hyperglycemia Surgical History Surgical History History of renal stent 06/30/2020 History of ventral hernia repair robotic assisted repair of periumbilical ventral hernia and diastasis recti with [id number] mesh in underlay position 04/01/20 Family History Family History Sibling Patient's brother is in good health Family history of diabetes mellitus in first degree relative sister Mother Family history of diabetes mellitus in first degree relative, Onset Age: 76 Diabetes mellitus Father Patient's father is Other Asthma Cerebrovascular accident Family history of arthritis Family history of glaucoma Family history of thyroid disease Hypertension Malignant neoplasm of prostate Social History Social History Social History: the patient is single and has never been . She does not have any children. She works for [employer]. She does not have a durable power energy attorney for healthcare. She desires to be a full code. The patient used to smoke and quit smoking about 20 years ago. She does not use any marijuana or illicit drugs. 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
[2020-07-31] VITALS (7 sets, daily range): BP systolic 119–155; BP diastolic 61–96; PULSE 70–88; RESP 10–16; TEMP 36.4–37; O2SAT 93–100
--- NOTE | ~2020-07-31 | XR_ITS ---
EXAMINATION: XR retrograde pyelo w/stent RT DATE: 07/31/2020 15:56 INDICATION: Right ureteral stent exchange TECHNIQUE: 28 fluoroscopic images of the abdomen and pelvis were obtained during procedure performed by Dr. Quinn. Radiologist was not present for the imaging or procedure. The amount of fluoroscop y time used during this procedure was 2.0 minutes. COMPARISON: 07/01/2020 FINDINGS: The initial learning technologist images demonstrate a right internal ureteral stent with loops formed over the expec briana location of the right renal pelvis and bladder. Subsequent images demonstrate a wire advanced int o an upper pole calyx of the right kidney and removal of the prior stent. Catheter is advanced into t he right ureter with retrograde contrast administration delineating the contours of the right renal c ollecting system where there appears to be mild hydronephrosis with no filling defects to suggest sto nickolas. Final images demonstrate placement of a new right internal ureteral stent with loops formed in t he region of the right renal pelvis and with partially formed loop in the bladder. IMPRESSION: 1. Fluoroscopy utilized during right internal ureteral stent exchange with new stent in expected posi tion. See procedure note for further detail. Reviewed, dictated and finalized at location H. RAL GAS TECHNICIAN IMPRESSION: 1. Fluoroscopy utilized during right internal ureteral stent exchange with new stent in expected position. See procedure note for further detail.
[2020-07-31] MEDS: ACETAMINOPHEN 500 MG TABLET 1000 MG PO (10:22)
[2020-07-31] MEDS: LACTATED RINGERS 1,000 ML 30 ML IV CONT ×2 (10:40→15:52)
[2020-07-31 11:04] LABS: Glucose Point of Care 153 (65-105)
[2020-07-31] MEDS: CIPROFLOXACIN 400 MG/D5W 200ML 200 ML 200 MG IVPB (12:05)
--- NOTE | 2020-07-31 12:37 | SUR.PREOP ---
1220-DR. JUÁREZ HERE, SPOKE WITH PT, WILL SWITCH ORDER OF CASES FOR PT TO COMPLETE IV ANTIBIOTIC. PT STATES SHE WILL NOTIFY NIECE OF TIME CHANGE.
--- NOTE | 2020-07-31 12:44 | WPDHPUPDATE1 ---
History and Physical Update Update Date/Time: 07/31/20 12:44 History and Physical has been reviewed, including an updated exam of the patient. - Patient with persistent low-colony count of Proteus. Has been on Macrobid (resistant). Pt started Cipro today. Explained increased risk of infection given Proteus infection. Pt understands pros/cons to proceeding today vs. additional antibiotics and postponing surgery Risks, benefits, and alternatives have been discussed and questions answered. Patient agrees to proceed with procedure today.
[2020-07-31] MEDS: LIDOCAINE HCL 2% GEL UROJET 10 ML PKG MUCOUS MEM (14:48)
--- NOTE | 2020-07-31 15:49 | PM.PROC ---
Procedure Note - Detailed Date of procedure: 07/31/20 Pre-op diagnosis: Right Kidney Stone Post-op diagnosis: same Procedure performed: Cystoscopy, right ureteroscopy, laser lithotripsy, stone extraction, retrograde pyelogram, stent insertion Description of procedure: Informed consent was obtained. Patient taken operating. She had preoperative IV antibiotics with ciprofloxacin prior to surgery. The patient was induced in that she has a she was placed into lithotomy position she was prepped and draped normal sterile fashion. A 20 F cystoscope was inserted through that with bladder pain regressed pre-existing stent was pulled through the meatus. Was unable to easily pass a wire through the pre-existing stent therefore the stent was removed we then performed a retrograde pyelogram in advance the wire into the mildly dilated right collecting system. We then advanced a semirigid ureteroscope into the mid and lower ureter and no stone was seen with and over a superstiff wire carefully advanced a [id number] access. We advanced a flexible ureteral scope and advanced into the proximal ureter and into the renal pelvis. Stone was identified in a mid pole calyx as well as in a lower pole calyx the stone fragmented using the laser fiber into multiple very small fragments in a dusting fashion. We then did inserted a basket and all significant stone fragments were removed. At this point we performed retrograde pyelogram under fluoroscopic guidance did not identify any significant residual stone. Again a retrograde pyelogram was performed and each calyx was inspected with no significant residual stone. We then inspected the length of the ureter and there was no stone seen. Over a wire a 6 F variable length stent was inserted with the prone renal pelvis and curl in the bladder bladder was emptied and lidocaine were instilled patient was awakened taken recovery in stable condition Anesthesia: GLMA Surgeon: Irene Quinn MD Estimated blood loss (mL): 5 Drains: No Packing: No Pathology: yes Complications: No immediate complications Condition: stable Disposition: PACU
[2020-07-31] MEDS: fentaNYL CITRATE INJ (*CRX) 100 MCG/2 ML VIAL 25 MCG IV PUSH ×4 (16:15→16:26)
== END 2020-07-31 17:20 | disposition home or self-care (01) ==
PROVIDERS: PCP Internal Medicine; Visit Provider Urology
PROC: (CPT 52352; principal; 2020-07-31 12:00)
PROC: (CPT 52356; 2020-07-31 12:00)
DX: N20.0 Calculus of kidney (principal); I10 Essential (primary) hypertension; E11.9 Type 2 diabetes mellitus without complications; E03.9 Hypothyroidism, unspecified; F41.8 Other specified anxiety disorders; Z79.84 Long term (current) use of oral hypoglycemic drugs; Z87.891 Personal history of nicotine dependence; E66.01 Morbid (severe) obesity due to excess calories; Z68.42 Body mass index [BMI] 45.0-49.9, adult
CPT/HCPCS: 52356; 74420; 82365; 88300; A9270; C1769; C1887; C1894; C2617; J0744; J2250; J2405; J2704; J3010; J7120; Q9966

== ENCOUNTER 2022-02-11 04:50 | Outpatient (CLI) | payer OTHER, SELFPAY ==
--- NOTE | ~2022-02-11 | XR_ITS ---
EXAM: XR knee LT 3V DATE: 02/11/2022 17:20 HISTORY: M25.562 - Pain in left knee, NO RECENT INJURY, PAIN WORSE . COMPARISON: None available. FINDINGS: Normal mineralization. No fracture or dislocation. No lytic or blastic lesion. Severe medi al joint space narrowing. Tricompartmental osteophytosis. Cortical excrescence along the lateral cond yle. Loss of valgus alignment. No erosion or periosteal change. Soft tissues within normal limits. IMPRESSION: Tricompartment osteophytosis, severe in the medial compartment. Reviewed, dictated and finalized at location K.
== END 2022-02-11 04:51 | disposition home or self-care (01) ==
PROVIDERS: PCP Internal Medicine; Visit Provider Internal Medicine
DX: M25.562 Pain in left knee (principal); M25.762 Osteophyte, left knee
CPT/HCPCS: 73562

== ENCOUNTER 2024-09-03 15:43 | Emergency (ER) | payer OTHER, SELFPAY ==
--- NOTE | ~2024-09-03 | CT_ITS ---
CLINICAL INDICATION: Lower abdominal pain and constipation COMPARISON: 06/30/2020. TECHNIQUE: Multiple contiguous axial images of the abdomen and pelvis were performed following the ad ministration of with 100 mL Omnipaque-350 intravenous contrast The dose-length product (DLP) was 1547.31 mGy-cm. Automated exposure control and iterative reconstruction technique were employed. FINDINGS/OBSERVATIONS: Visualized lower thorax: The bilateral lung bases are clear. The heart is of normal size, without pericardial effusion. Small hiatal hernia is present. Liver: Liver is enlarged measuring 25 cm in longitudinal dimension Gallbladder and biliary system: The gallbladder is only minimally distended, and otherwise unremarkable. Pancreas: The pancreas enhances homogeneously without ductal dilatation. Spleen: The spleen enhances homogeneously and is not enlarged measuring 8 cm in longitudinal dimension. Kidneys: The bilateral kidneys enhance symmetrically without hydronephrosis or renal calculi. Adrenal glands: Unremarkable. Gastrointestinal tract: Pleural thickening with surrounding inflammatory change is identified within the sigmoid colon with m ultiple diverticula, findings consistent with acute diverticulitis. No gross perforation or drainable fluid collection is appreciated. Appendix: The appendix is not definitively visualized. However, no pericecal inflammatory change is identified suggest the presence of acute appendicitis. Vasculature: Unremarkable. No aneurysmal dilatation or significant stenosis. Lymph nodes: No pathologically enlarged or morphologically suspicious lymph nodes within the retroperitoneum or at the root of the mesentery. Pelvic structures: The bladder is decompressed, limiting its evaluation. The uterus is either surgically absent or markedly atrophic Body wall and musculoskeletal: No significant degenerative disease within the lower thoracic or lumbosacral spine. IMPRESSION: Acute rectosigmoid diverticulitis without a drainable fluid collection or gross perforation. Follow-up to resolution is recommended as a malignancy may have a similar appearance Reviewed, dictated and finalized at location A. E SET UP OPERATOR IMPRESSION: Acute rectosigmoid diverticulitis without a drainable fluid collection or gross perforation. Follow-up to resolution is recommended as a malignancy may have a similar appea greyson
[2024-09-03 15:44] VITALS: BP 131/83; PULSE 110; RESP 18; TEMP 36.8; O2SAT 100
--- NOTE | 2024-09-03 17:32 | ED_ITS ---
HPI - Abdominal Pain General Chief Complaint: Abdominal Pain Stated Complaint: abd pain Time Seen by Provider: 09/03/24 17:22 Source: patient Mode of arrival: ambulatory Limitations: no limitations History of Present Illness HPI narrative: This is a 59-year-old female who presents to the ED for chief complaint of abdominal pain increasing over the past month and worse over the past week. Patient states that it feels like she has ?twisting intestines? in the lower abdomen. Reports surgical history of hernia repair x1 in the past. States that she has a lot of tenesmus but difficulty with bowel movements overall. Denies GI bleeding symptoms. Denies any urinary symptoms but does note that she has had stones in the past as well. Reports recent fevers over the holidays but denies cough, chest pain, headache body aches. Related Data Home Medications ?Medication ?Instructions ?Recorded ?Confirmed ?Last Taken ?Type aspirin 81 mg tablet,delayed 81 mg PO DAILY 07/24/19 01/18/24 07/24/20 History release cetirizine 10 mg capsule (Zyrtec) 10 mg PO DAILY 02/26/22 01/18/24 Unknown History Allergies Allergy/AdvReac Type Severity Reaction Status Date / Time No Known Allergies Allergy Mild Verified 08/01/24 07:51 Review of Systems 2 Review of Systems: All systems as dictated in HPI [facility] Past Medical History Medical History Acute renal failure Acute unilateral obstructive uropathy Anemia BMI 50.0-59.9, adult Body mass index (BMI) 35 or more (03/02/17) Depression with anxiety Diastasis recti Diverticulosis Essential hypertension Gastro-esophageal reflux disease without esophagitis Hydronephrosis due to obstruction of ureter Hypertension Hypothyroidism, unspecified Kidney stones Localized swelling, mass, and lump of head Morbid (severe) obesity due to excess calories (02/15/18) Obesity Pure hypercholesterolemia Scalp cyst Sepsis Type 2 diabetes mellitus with hyperglycemia Umbilical hernia without mention of obstruction or gangrene Wheezing Surgical History Surgical History History of renal stent 06/30/2020 History of ventral hernia repair robotic assisted repair of periumbilical ventral hernia and diastasis recti with [id number] mesh in underlay position 04/01/20 Hx of cataract surgery Family History Family History Sibling Patient's brother is in good health Family history of diabetes mellitus in first degree relative sister Mother Family history of diabetes mellitus in first degree relative, Onset Age: 76 Diabetes mellitus Father Patient's father is Other Asthma Cerebrovascular accident Family history of arthritis Family history of glaucoma Family history of thyroid disease Hypertension Malignant neoplasm of prostate Social History Social History Social History: the patient is single and has never been . She does not have any children. She works for [employer]. She does not have a durable power banking attorney for healthcare. She desires to be a full code. The patient used to smoke and quit smoking about 20 years ago. She does not use any marijuana or illicit drugs. Smoking packs per day: 1 Smoking cigarettes per day: 20.0 Years smoked: 10 Smoking pack-years: 10.00 Smoking status: Former smoker Tobacco type: cigarettes Second hand tobacco smoke exposure: No Smoking end date: 09/06/99 Additional smoking assessment comments: 20 YEARS AGO Alcohol intake: current Alcohol use details: rarely Substance use: never Lack of Transportation: No Lack of Food: Never True Current Housing: I Have Housing Concerned About Future Housing: No Difficulty Paying Gas/Electric Bills: No Difficulty Paying for Meds: No Currently Unemployed: No Education: Associate Degree Difficulty w/ Childcare or Family Care: No Living arrangements: alone Occupation/Education: occupation 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 HEAD: Normocephalic, atraumatic. EYES: PERRLA and EOMI. ENT: Nares clear, no rhinorrhea or epistaxis. Mucous membranes moist. Oropharynx without tonsillar hypertrophy exudate or other lesions. NECK: Supple. No adenopathy or masses. CHEST: No respiratory distress. Clear to auscultation. No wheezes rales or rhonchi HEART: Regular rate and rhythm. No murmur heard. Normal peripheral pulses. ABDOMEN: Mild suprapubic tenderness. Soft, nontender, nondistended, normal active bowel sounds. MSK: Normal range of motion. No edema. SKIN: Warm, dry, no rash. NEURO: Alert and oriented x4. No focal deficits. PSYCH: Normal mood and affect. Course Vital Signs Vital signs: Vital Signs Temperature 98.3 F 09/03/24 15:44 Pulse Rate 110 H 09/03/24 15:44 Respiratory Rate 18 09/03/24 15:44 Blood Pressure 131/83 09/03/24 15:44 Pulse Oximetry 100 09/03/24 15:44 Temperature 98.3 F 09/03/24 15:44 Pulse Rate 76 09/03/24 19:35 Respiratory Rate 16 09/03/24 19:35 Blood Pressure 129/71 09/03/24 19:35 Pulse Oximetry 100 09/03/24 19:35 MDM - Abdominal Pain MDM Narrative Medical decision making narrative: This is a 59-year-old female who presents to the ED for chief complaint of lower abdominal pain. Vitals are normal. Exam does show mild tenderness to the lower abdomen. Lab work shows normal white count on the CBC. CMP unremarkable. Lipase is normal. Urinalysis shows evidence of dehydration but no infection. CT abdomen pelvis with IV contrast: IMPRESSION: Acute rectosigmoid diverticulitis without a drainable fluid collection or gross perforation. Follow-up to resolution is recommended as a malignancy may have a similar appearance Presentation is consistent with diverticulitis. Patient was given fluids, Zofran, antiemetics here with good relief of symptoms. On re-evaluation she feels ready to go home. Diverticulitis diet discussed. Rx for Augmentin, [place], Zofran given. Patient will be discharged in stable condition. Supportive measures discussed and return precautions given. Patient is understanding and agreeable with plan for discharge with PCP follow-up. Lab Data 09/03/24 17:30 09/03/24 17:30 Labs: Lab Results 09/03/24 Range/Units 17:30 WBC 8.8 (4.5-10.0) K/mm3 RBC 4.39 (4.2-5.4) M/mm3 Hgb 11.9 L (12.0-15.0) g/dL Hct 38.3 (37.0-47.0) % MCV 87.2 (80-100) fl MCH 27.1 (26-34) pg MCHC 31.1 L (32-36) g/dl RDW 13.7 (11.5-14.5) % Plt Count 256 (150-375) k/mm3 MPV 8.0 (7.4-10.4) fl Immature Gran % (Auto) 2.0 H (0-0.5) % Neut % (Auto) 59.4 (45.5-73.1) % Lymph % (Auto) 24.7 (18.3-44.2) % Stewart % (Auto) 10.7 H (2.6-8.5) % Eos % (Auto) 2.5 (0-4.4) % Baso % (Auto) 0.7 (0.2-1.2) % Lymph # (Auto) 2.18 (0.9-3.2) K/mm3 Stewart # (Auto) 0.9 H (0.1-0.6) K/mm3 Eos # (Auto) 0.2 (0-0.3) K/mm3 Baso # (Auto) 0.1 (0.0-0.1) K/mm3 Abs Immat Gran (auto) 0.18 H (0.00-0.031) K/mm3 Absolute Neuts (auto) 5.2 (1.3-6.7) K/mm3 Absolute Nucleated RBC 0.000 (0.0-0.012) K/mm3 Nucleated RBC % 0.0 (0.0-0.2) % Sodium 138 (137-145) mmol/L Potassium 3.9 (3.4-5.0) mmol/L Chloride 105 (98-107) mmol/L Carbon Dioxide 27 (22-30) mmol/L Anion Gap 6 (4-12) mmol/L BUN 11 (7-17) mg/dL Creatinine 0.70 (0.7-1.0) mg/dL Estim Creat Clear Calc 97 ml/min Estimated GFR > 60 (59 - ) Glucose 137 H (65-110) mg/dL Calcium 9.2 (8.4-10.2) mg/dL Total Bilirubin 0.3 (0.2-1.3) mg/dL AST 23 (14-36) U/L ALT 20 (6-35) U/L Alkaline Phosphatase 100 (38-126) U/L Total Protein 7.0 (6.3-8.2) g/dL Albumin 4.0 (3.5-5.1) g/dL Lipase 86 (23-300) U/L Urine Color Yellow (Yellow) Urine Appearance Clear (Clear) Urine pH 5.5 (5.0-9.0) Ur Specific Bailey 1.041 H (1.001-1.035) Urine Protein Negative (Negative) mg/dL Urine Glucose (UA) 3+ H (Negative) mg/dL Urine Ketones Trace H (Negative) mg/dL Ur Blood (Man) Negative (Negative) Urine Nitrate Negative (Negative) Urine Bilirubin Negative (Negative) Urine Urobilinogen 1.0 (<2.0) mg/dL Leukocyte Esterase Rfl Negative (Negative) HALLIE/UL Imaging Data Radiologist's impression: ITS Impressions Abdomen/Pelvis CT 09/03/24 18:46 IMPRESSION: Acute rectosigmoid diverticulitis without a drainable fluid collection or gross perforation. Follow-up to resolution is recommended as a malignancy may have a similar appearance Discharge Plan Discharge Clinical Impression: Diverticulitis of sigmoid colon Patient Disposition: Home, Self-Care Condition: Stable Instructions: Antibiotic Form, Diverticulitis Diet (ED) Additional Instructions: Your exam and imaging today show evidence of diverticulitis. He is followed diverticulitis diet. Take antibiotics as prescribed. Use Tylenol and ibuprofen regularly for pain control. Take [place] for breakthrough pain. Zofran prescribed for nausea. Follow-up with PCP on this issue If you have any new or worsening symptoms please return to the ER for further evaluation. Patient Language: Tanzanian Prescriptions: New amoxicillin-pot clavulanate 875-125 mg tablet 1 tablet PO Q12H Qty: 10 0RF hydrocodone-acetaminophen 5-325 mg tablet 1 tablet PO Q8H PRN (Reason: pain) Qty: 14 0RF ondansetron 4 mg tablet,disintegrating 4 mg PO Q8H PRN (Reason: nausea and vomiting) Qty: 10 0RF No Action aspirin 81 mg tablet,delayed release (DR/EC) 81 mg PO DAILY Zyrtec 10 mg capsule 10 mg PO DAILY azelastine 137 mcg (0.1 %) aerosol,spray 2 spray intranasal Q12H PRN (Reason: allergy symptoms) Qty: 30 5RF Rx Instructions: administer into each nostril levothyroxine [Synthroid] 50 mcg tablet 50 mcg PO DAILY Qty: 90 3RF pantoprazole 40 mg tablet,delayed release (DR/EC) 40 mg PO QAM Qty: 90 2RF citalopram 40 mg tablet See Rx Instructions .ROUTE .COMPLEX Qty: 90 3RF Dose Instruction: Take 1 tablet by mouth once daily Rx Instructions: Take 1 tablet by mouth once daily albuterol sulfate 90 mcg/actuation HFA aerosol inhaler 2 inh INHALATION Q4-6H PRN (Reason: Shortness Of Breath) Qty: 8.5 5RF simvastatin 20 mg tablet 20 mg PO DAILY Qty: 90 3RF metformin 500 mg tablet See Rx Instructions .ROUTE .COMPLEX Qty: 360 2RF Dose Instruction: TAKE 2 TABLETS(2-500 MG) BY MOUTH TWICE DAILY WITH MEALS Rx Instructions: TAKE 2 TABLETS(2-500 MG) BY MOUTH TWICE DAILY WITH MEALS lisinopril 20 mg tablet See Rx Instructions .ROUTE .COMPLEX Qty: 90 1RF Dose Instruction: Take 1 tablet by mouth once daily Rx Instructions: Take 1 tablet by mouth once daily Farxiga 10 mg tablet 10 mg PO DAILY 90 Days Qty: 90 3RF Wegovy 2.4 mg/0.75 mL pen injector 2.4 mg subcut WEEKLY Qty: 9 1RF Follow-up/Referrals: Isidro,Vamshi Flowers DO [Non-Staff] - Time of Disposition: 19:23
[2024-09-03 17:36] LABS: Basophils Absolute Auto 0.1 K/mm3 (0.0-0.1); Basophils Percent Auto 0.7 % (0.2-1.2); Eosinophils Absolute Auto 0.2 K/mm3 (0-0.3); Eosinophils Percent Auto 2.5 % (0-4.4); Hematocrit 38.3 % (37.0-47.0); Hemoglobin 11.9 g/dL (12.0-15.0); Immature Granulocyte Absolute 0.18 K/mm3 (0.00-0.031); Lymphocytes Absolute Auto 2.18 K/mm3 (0.9-3.2); Lymphocytes Percent Auto 24.7 % (18.3-44.2); Mean Corpuscular HGB Conc 31.1 g/dl (32-36); Mean Corpuscular Hemoglobin 27.1 pg (26-34); Mean Corpuscular Volume 87.2 fl (80-100); Monocytes Absolute Auto 0.9 K/mm3 (0.1-0.6); Monocytes Percent Auto 10.7 % (2.6-8.5); Neutrophils Absolute Auto 5.2 K/mm3 (1.3-6.7); Neutrophils Percent Auto 59.4 % (45.5-73.1); Platelet Count Result 256 k/mm3 (150-375); Red Blood Count 4.39 M/mm3 (4.2-5.4); Red Cell Distribution Width 13.7 % (11.5-14.5); White Blood Count 8.8 K/mm3 (4.5-10.0)
[2024-09-03] MEDS: LACTATED RINGERS 1,000 ML 999 ML IV CONT (17:37)
[2024-09-03] MEDS: ONDANSETRON INJ 4 MG/2 ML VIAL IV PUSH (17:38)
[2024-09-03] MEDS: HYDROmorphone HCL INJ (*CRX) 1 MG/ML SYR 0.5 MG IV PUSH (17:38)
[2024-09-03 17:39] LABS: Add Urine Microscopic? NO; Appearance Urine Clear (Clear); Bilirubin Urine Negative (Negative); Blood Urine Negative (Negative); Color Urine Yellow (Yellow); Glucose Urine UA 3+ mg/dL (Negative); Ketones Urine Trace mg/dL (Negative); Leukocyte Esterase Ur Negative LEU/UL (Negative); Nitrate Urine Negative (Negative); Protein Urine Negative (Negative); Specific Grav Ur 1.041 (1.001-1.035); pH Urine 5.5 (5.0-9.0)
[2024-09-03 17:46] VITALS: BP 110/67; PULSE 82; RESP 20; O2SAT 96
[2024-09-03 17:46] LABS: Alanine Aminotransferase 20 U/L (6-35); Alkaline Phosphatase 100 U/L (38-126); Anion Gap 6 mmol/L (4-12); Aspartate Amino Transferase 23 U/L (14-36); Bilirubin,Total 0.3 mg/dL (0.2-1.3); Blood Urea Nitrogen 11 mg/dL (7-17); Calcium 9.2 mg/dL (8.4-10.2); Carbon Dioxide 27 mmol/L (22-30); Chloride 105 mmol/L (98-107); Estimated CRCL calculation 97 ml/min; Estimated Glomerular Filt Rate > 60; Glucose 137 mg/dL (65-110); Lipase 86 U/L (23-300); Potassium 3.9 mmol/L (3.4-5.0); Sodium 138 mmol/L (137-145)
[2024-09-03 19:35] VITALS: BP 129/71; PULSE 76; RESP 16; O2SAT 100
--- OUTSIDE RECORDS SUMMARY | 2024-09-10 19:02 | XMS_ITS | Encounter Summary ---
Author Organization [facility] Address [address] [facility] [facility] [address] [place] [address] Phone Care Team Providers Care Shipfitters Supervisor Name Role Phone Vamshi Felix MD Primary Care Provider +1- [phone] Isabela Palma DPT Unavailable Reason for Visit * Reason Comments PT Treatment * Consultation (Routine) - Closed Specialty Diagnoses / Procedures Referred By Contac t Referred To Contact Physical Therapy Diagnoses Pain in left foot Left knee pain, unspecified chronicity Vamshi Felix MD [address] [facility] [address] [place] [address] [address] [place] [address] Phone: tel: fax: [facility] (All Locations) Referral ID Status Reason Start Date Expiration Date V isits Requested Visits Authorized [id number] Closed Specialty Services Required 02/24/2023 02/25/2024 24 24 Encounter Details Date Type Department Care Team (Late st Contact Info) Description 04/16/2023 7:45 AM CDT Therapy [facility] Physical Therapy [address] [facility] [address] [place] [address] Isabela Palma, DPT [address] [facility] [address] [place] [address] Pain in left foot (Primary Dx); Left knee pain, unspecified chronicity Social History Tobacco Use Types Packs/Day Years Used Date Smoking Tobacco: Never Assessed Comments Unknown Sex and Gender Information Value Date Recorded Sex Assigned at Not on file 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 Pain in left foot 729.5 M79.672 2. Left knee pain, unspecified chronicity 719.46 M25.562 Total Therapy visits: 3 Subjective: She is able to go downstairs normally. She has not had the tearing sensation in her calf in a few weeks. It doesn't feel as swollen in her calf. Objective: Knee A/PROM L 04/01 R 04/01 L 04/16 Extension -5 +6 0 Flexion 90* 130 96* Treatment Provided - stationary bike = seat height 8, 6min full revolutions - tibiofemoral posterior glide and relative anterior glide for knee flexion and extension = grade III 30sec x3 ea - quad set = 5sec hold x10 - supine knee flexion AAROM with sheet = hold for length of 3 deep breaths, x10 - step over 6 box = to facilitate repetitive knee flexion through new range - lunge = tapping knee to step x15 L behind - heel raise = to fatigue - calf stretch = 30sec ea Next Visit: stairs Assessment: Thea demonstrates improvements in knee ROM and improvements in functional capacity. She is making excellent progress. While practicing lunges her thigh muscle got so fatigued that her leg gave out when stepping backward over the step. She did not fall, but caught herself on the ballet barre which she had been holding and I assisted her in standing upright. Pt had Mild increase in symptoms this visit. Patient will continue to benefit from skilled physicaltherapy to facilitate functional mobility, strength, balance, and patient education promoting safe return to daily activities. Plan:Continue PT per POC to progress toward goals per patient tolerance Time-Based Code Calculator Minutes for Ther Ex/Ther Procedure (98167):: 30 minutes Minutes for Manual Therapy (92736):: 5 minutes Timed Code Treatment Minutes:: 35 minutes Visit Start Time: 744 Visit Stop Time: 819 Isabela Palma DPT documented in this encounter Plan of Treatment Not on file documented as of this encounter Visit Diagnoses Diagnosis Pain in left foot- Primary Pain in soft tissues of limb Left knee pain, unspecified chronicity documented in this encounter Care Teams Shipfitters Supervisor Relationship Specialty Start Date End Date Vamshi Felix MD [address] [place] [address] PCP - General Internal Medicine 04/01/23 Isabela Palma DPT [address] [facility], [facility] [address] [place] [address] Physical Therapy 04/01/23 documented as of this encounter
--- OUTSIDE RECORDS SUMMARY | 2024-09-10 19:02 | XMS_ITS | Encounter Summary ---
Author Organization [facility] Address [address] [place] [address] Phone Care Team Providers Care Grocery Caddy Name Role Phone Vamshi Felix MD Primary Care Provider +1- [phone] Isabela Palma DPT Unavailable Reason for Visit * Reason Comments PT Treatment * Consultation (Routine) - Closed Specialty Diagnoses / Procedures Referred By Contac t Referred To Contact Physical Therapy Diagnoses Pain in left foot Left knee pain, unspecified chronicity Vamshi Felix MD [address] [facility] [address] [place] [address] Phone: tel: fax: [facility] (All Locations) Referral ID Status Reason Start Date Expiration Date V isits Requested Visits Authorized [id number] Closed Specialty Services Required 02/24/2023 02/25/2024 24 24 Encounter Details Date Type Department Care Team (Late st Contact Info) Description 04/08/2023 7:30 AM CDT Therapy [facility] Physical Therapy [address] [facility] [address] [place] [id number] Abhinav Laureano, ADAPTIVE PHYSICAL EDUCATOR [address] [facility] [address] [place], [place] [id number] Pain in left foot (Primary Dx); Left knee pain, unspecified chronicity Social History Tobacco Use Types Packs/Day Years Used Date Smoking Tobacco: Never Assessed Comments Unknown Sex and Gender Information Value Date Recorded Sex Assigned at Not on file 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 Pain in left foot 729.5 M79.672 2. Left knee pain, unspecified chronicity 719.46 M25.562 Total Therapy visits: 2 Date PT Care Plan Established or Reviewed: 04/01/2023 Order Information Expiration: No data was found Authorized visits: Visits remaining: No data was found Subjective: Patient reports yesterday was a really good day - she felt pretty good and was able to go up the stairs normally. Today she feels stiff, so not as good as yesterday. She is not really having much pain. She has noticed small things like getting in the car that have gotten easier. Performance of HEP: Overall going well - challenged with the knee flexion due to limited range. Shehas been able to do most of them 3x/day. Objective: N/T Treatment Provided - prone knee flexion AAROM using contralateral leg - prone hip abduction - supine knee flexion AAROM with sheet - quad set - calf stretch = knee straight and bent - Seated edge of chair hamstring stretch/knee extension with overpressure - heel raise - Seated knee flexion slides - Sit to stand with focus on equal knee flexion and loading - Recumbent bike: 6 minutes full revoulation pt education: - okay to do water aerobics, stationary bike when comfortable - Progress in therapy - HEP - Symptom management Assessment/Plan: Patient presents this date with report of improving symptoms, noting less stiffness and better activity tolerance. She has noticed improvements with functional mobility. She was able to perform and progress exercises with cuing to ensure proper muscle activation/stretching. Continued with educationon appropriate exercises and response. She verbalized good mindfulness and awareness of recommendations for posture and alignment. No increase in symptoms throughout and after the treatment. Patient would benefit from continued skilled therapy for education and progression to work towards goals and return to normal functional abilities. Total Treatment Time: 40 minutes Treatment this date was provided by a licensed Physical Therapist Fireman Helper. There was on-site supervision of the Physical Therapist Fireman Helper by a Physical Therapist when the treatment was performed. Time-Based Code Calculator Minutes for Ther Ex/Ther Procedure (34576):: 30 minutes Minutes for Ther Act (09680):: 10 minutes Timed Code Treatment Minutes:: 40 minutes Total Treatment Time: 40 Visit Start Time: 733 Visit Stop Time: 813 Abhinav Laureano PTA Cosigned by Mook Perez DPT at 04/08/2023 1:56 PM CDT documented in this encounter Plan of Treatment Not on file documented as of this encounter Visit Diagnoses Diagnosis Pain in left foot- Primary Pain in soft tissues of limb Left knee pain, unspecified chronicity documented in this encounter Care Teams Grocery Caddy Relationship Specialty Start Date End Date Vamshi Felix MD [address] [facility] [address] [facility] [address] [place] [address] PCP - General Internal Medicine 04/01/23 Isabela Palma DPT [address] [facility], [facility] [address] [place] [address] Physical Therapy 04/01/23 documented as of this encounter
--- OUTSIDE RECORDS SUMMARY | 2024-09-10 19:02 | XMS_ITS | Encounter Summary ---
Author Organization [facility] Address [address] [place] [address] Phone Care Team Providers Care Rail Equipment Operator Name Role Phone Vamshi Felix MD Primary Care Provider +1- [phone] Isabela Palma DPT Unavailable Encounter Details Date Type Department Care Team (Late st Contact Info) Description 04/01/2023 Plan of Care Documentation [facility] Physical Therapy [facility] [address] [place] [address] Social History Tobacco Use Types Packs/Day Years Used Date Smoking Tobacco: Never Assessed Comments Unknown Sex and Gender Information Value Date Recorded Sex Assigned at Not on file Legal Sex Female 1:07 AM QA LEAD Gender Identity Not on file Sexual Orientation Not on file documented as of this encounter Plan of Treatment Not on file documented as of this encounter Visit Diagnoses Not on filedocumented in this encounter Care Teams Rail Equipment Operator Relationship Specialty Start Date End Date Vamshi Felix MD [address] [facility] [address] [place] [address] PCP - General Internal Medicine 04/01/23 Isabela Palma DPT [address] [facility], [facility] 120 [place] [address] Physical Therapy 04/01/23 documented as of this encounter
--- OUTSIDE RECORDS SUMMARY | 2024-09-10 19:02 | XMS_ITS | Clinical Summary ---
Author Organization [facility] [[email or web address]] [address] [facility] Address [address] [place] [address] Care Team Providers Care Fire Fighter Airport Name Role Phone Vamshi Felix MD Primary Care Provider +1- [phone] Isabela Palma DPT Unavailable Allergies No known active allergies Medications No known medications Active Problems No known active problems Social History Tobacco Use Types Packs/Day Years Used Date Smoking Tobacco: Never Assessed Personal Safety Answer Date Recorded Getting School Help Needed Not on file 10/13 Comments Unknown Sex and Gender Information Value Date Recorded Sex Assigned at Not on file 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 Gender Identity Not on file Sexual Orientation Not on file Plan of Treatment Health Maintenance Due Date Last Done Comments Breast Cancer Screening-Mammogram 1965 Cervical Cancer Screening 1965 Colon Cancer Screening-Colonoscopy 1965 Depression Screening 1965 Hepatitis C Screening 1965 DTaP/Tdap/Td Vaccine (1 - Tdap) 02/08/1975 Hepatitis B Screening 02/08/1982 Regular Well Visit/Exam 18-64 02/08/1982 Covid-19 Vaccine ( season) 2024 07/15/2022, 07/19/2021, 11/28/2020, Additional history exists Influenza Vaccine (#1) 2024 4, 06/13/2013, 06/25/2012 Pneumococcal vaccine <65 Aged Out 09/05/2021 No longer eligible based on patient's age to complete this topic Zoster Vaccine Completed 09/05/2021, 03/25/[address] [place] [id number] R [facility]/PPO Address: [facility] [address] [place] [address] Care Teams Fire Fighter Airport Relationship Specialty Start Date End Date Vamshi Felix MD [address] [facility] 120 [place] [address] PCP - General Internal Medicine 04/01/23 Isabela Palma DPT [address] [facility], [facility] [address] [place] [address] Physical Therapy 04/01/23
--- OUTSIDE RECORDS SUMMARY | 2024-09-10 19:02 | XMS_ITS | Referral Summary ---
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
--- OUTSIDE RECORDS SUMMARY | 2024-09-10 19:02 | XMS_ITS | Encounter Summary ---
Author Organization [facility] Address [address] [place] [address] Phone Care Team Providers Care Wireless Sales Manager Name Role Phone Vamshi Felix MD Primary Care Provider +1- [phone] Isabela Palma DPT Unavailable Reason for Visit * Reason Comments PT Initial Eval * Consultation (Routine) - Closed Specialty Diagnoses / Procedures Referred By Contac t Referred To Contact Physical Therapy Diagnoses Pain in left foot Left knee pain, unspecified chronicity Vamshi Felix MD [address] [facility] [address] [place] [address] Phone: tel: fax: [facility] (All Locations) Referral ID Status Reason Start Date Expiration Date V isits Requested Visits Authorized [id number] Closed Specialty Services Required 02/24/2023 02/25/2024 24 24 Encounter Details Date Type Department Care Team (Late st Contact Info) Description 04/01/2023 7:00 AM CDT Therapy [facility] Physical Therapy [address] [facility] [address] [place] [address] Isabela Palma, DPT [address] [facility] [address] [place] [address] Pain in left foot (Primary Dx); Left knee pain, unspecified chronicity Social History Tobacco Use Types Packs/Day Years Used Date Smoking Tobacco: Never Assessed Comments Unknown Sex and Gender Information Value Date Recorded Sex Assigned at Not on file 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 female Vamshi Felix MD [address] [address] ICD-9-CM ICD-10-CM 1. Pain in left foot 729.5 M79.672 Ambulatory referral order to Physical Therapy - 2. Left knee pain, unspecified chronicity 719.46 M25.562 Ambulatory referral order to Physical Therapy - Date of Service: 04/01/2023 Subjective History History of current complaint: Pt reports she has had knee problems for a long time. Has a history of knee injuries a long time ago. She said her MD took x- rays of her knee which showed arthritis everywhere in the knee. She tore her meniscus 20 years ago. No surgery, treated with PT and injections. 30 years ago she tried snow skiing and ended up being black and blue from my knee to my toes. The knee feels stiff and she can't bend it too much. It is swollen and hurts to touch on the sides and in the back. She describes a burning feeling in the back. Endorses instances of the knee givingout. She limps and she says this has started to hurt her ankle. She describes something feeling like it is tearing in the posterior aspect of her ankle. She will sometimes use a knee sleeve or ankle sleeve. She tried working up to a 5K back in January and could only complete half of it due to pain. Getting into the car is hard because she can't bend her knee enough to get in. No time of day difference with achiness. Stiff all of the time, not specifically in the AM. Sleeps with a pillow under herknee. Consistent issues over the past 1-1.5 years. Has used a cane in the past because she was afraid she would fall. Sometimes has to descend stairs one at a time, but sometimes can do it normally. Has had a couple of falls from the knee giving out. 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 Sports/Leisure/Fitness activities: wants to walk more for exercise; is a member of a gym and wants to start water aerobics Goal(s): to alleviate the pain and stiffness and to not be afraid that I'm going to fall Objective Left knee kept slightly flexed Normal to posterior pelvic tilt Dynamic Movement Screen: DL Squat: limited knee flexion = shakiness 1 leg stance: Right: femoral IR, knee hyperextension = balance < 5sec Left: keeps knee slightly bent, but does not buckle = balance < 5sec Gait: right lateral trunk lean, early heel rise (*Indicates patient's pain) Ankle A/PROM L R Dorsiflexion 5 10 Knee A/PROM L R Hyperextension +6 Extension -5 +6 Flexion 90* 130 (*Indicates patient's pain) Hip PROM L R Flexion 90 = stiffness towards end range 90 = no stiffness Extension 10 10 IR 5 5 ER 45 45 Resisted Tests Strength (MMT) L R Quadriceps 4/5* 5/5 Iliopsoas /5 /5 Gluteus Medius 3+/5 4/5 Hamstrings 3/5 5/5 Gluteus Marquez 3-/5 4/5 (*Indicates patient's pain) Special tests: L R Anterior Drawer Posterior Drawer Ton's Valgus 0 degrees Valgus 30 degrees Varus 0 degrees Varus 30 degrees Nahomi's Appley's Lateral Compression Patellar Compression Patellar tracking: normal Patient-Reported Questionnaires: Lower Extremity Functional Scale (LEFS): Lower Extremity Functional Scale (LEFS) LEFS Total Score:: 53 LEFS Percentage of Function: 66.25 Treatment Provided - prone knee flexion AAROM - prone hip abduction - supine knee flexion AAROM - quad set - calf stretch = knee straight and bent - knee extension passive - heel raise - pt education = okay to do water aerobics, stationary bike Next visit: bike, joint mobs, palpation, effusion Assessment/Plan: Chief Complaint PT Initial Eval Patient is a 58 y.o.-year-old female with primary c/o chronic left knee and ankle pain. She demonstrates tibiofemoral hypomobility leading to insufficient knee flexion and extension. She also has weak and painful quadriceps muscles with resisted testing. Her hip abductors and glutes are also weak and her hamstring and calf is short and stiff. I believe her heel pain is related to this muscle imbalance. Treatment today started with ROM and hip and quad strengthening. Contributing factors includechronicity of symptoms, image- confirmed arthritis, history of meniscus tear with conservative treatment. Will benefit from PT for patient education, strengthening, stretching, ROM, HEP, taping PRN, modalities PRN, and functional mobility training. Good prognosis. Active To demonstrate left Knee AROM: 0-100 degrees to improve functional mobility. Start: 04/01/23 Expected End: 06/24/23 To demonstrate ability to ambulate with an appropriate heel strike and push off to improve gait mechanics and pattern. Start: 04/01/23 Expected End: 04/29/23 To demonstrate gross LE strength > 4/5 to improve stability during weight bearing activities. Start: 04/01/23 Expected End: 06/24/23 To demonstrate ability to perform a partial squat and sit to stand with symmetrical weight bearing,independently, to improve functional mobility. Start: 04/01/23 Expected End: 04/29/23 Pt will participate in weekly exercise routine including cardiovascular exercises Start: 04/01/23 Expected End: 04/29/23 Patient consented to treatment and plan. Frequency/Duration: 1x/wk for 12 weeks Time-Based Code Calculator Minutes for Ther Ex/Ther Procedure (20538):: 15 minutes Timed Code Treatment Minutes:: 15 minutes Total Treatment Time: 60 Visit Start Time: 699 Visit Stop Time: 799 Isabela Palma DPT documented in this encounter Plan of Treatment Not on file documented as of this encounter Visit Diagnoses Diagnosis Pain in left foot- Primary Pain in soft tissues of limb Left knee pain, unspecified chronicity documented in this encounter Orders Outpatient Referral Count Last Ordered Date Fir st Ordered Date AMB REFERRAL ORDER TO PHYSICAL THERAPY 1 documented in this encounter Care Teams Wireless Sales Manager Relationship Specialty Start Date End Date Vamshi Felix MD [address] [facility] [address] [place] [address] PCP - General Internal Medicine 04/01/23 Isabela Palma DPT [address] [facility], [facility] [address] [place] [address] Physical Therapy 04/01/23 documented as of this encounter
== END 2024-09-03 19:37 | disposition home or self-care (01) ==
PROVIDERS: Emergency Provider Physician Assistant; PCP Internal Medicine
DX: K57.32 Diverticulitis of large intestine without perforation or abscess without bleeding (principal); Z79.82 Long term (current) use of aspirin; F41.8 Other specified anxiety disorders; I10 Essential (primary) hypertension; K21.9 Gastro-esophageal reflux disease without esophagitis; E03.9 Hypothyroidism, unspecified; E78.00 Pure hypercholesterolemia, unspecified; E11.9 Type 2 diabetes mellitus without complications; Z87.891 Personal history of nicotine dependence; E66.01 Morbid (severe) obesity due to excess calories; Z68.42 Body mass index [BMI] 45.0-49.9, adult
CPT/HCPCS: 36415; 74177; 80053; 81003; 83690; 85025; 96361; 96374; 96375; 99284; J1171; J2405; J7120; Q9967